=== PATIENT | male | born 1950 | race Caucasian/White ===

== ENCOUNTER 2017-08-03 17:30 | Inpatient (IN) | payer MEDICARE, OTHER ==
[~2017-08-03] VITALS: Ht 172.7 cm; Wt 78.2 kg
--- NOTE | 2017-08-03 18:31 | PHYS DOC ---
Adult General Chief Complaint Chief Complaint: ALTERED MENTAL STATUS HPI HPI Patient is a 66 year old male who presents with his and daughter to the emergency department for evaluation of behavioral problems. The patient states that he has history of OCD and was recently diagnosed with dementia. Patient has been following with Dr. Escamilla of neurology over the past several months. Patient and patient's family state that over the past 6 months the patient has had continuing moderate to severe symptoms of OCD and difficulty with memory loss. The patient has not had any significant changes in his health otherwise over the past 2 weeks. After speaking with the patient's neurologist, the family states that they were instructed to come to the hospital for evaluation. They were told by Dr. Diaz that he expected they would need to likely admit the patient to the [facility] unit for further care. The patient otherwise denies any symptoms of chest pain, shortness of breath, nausea, vomiting, or fever. Review of Systems Review of Systems Constitutional: Denies fever or chills [] Eyes: Denies change in visual acuity, redness, or eye pain [] HENT: Denies nasal congestion or sore throat [] Respiratory: Denies cough or shortness of breath [] Cardiovascular: Denies chest pain or edema[] GI: Denies abdominal pain, nausea, vomiting, bloody stools or diarrhea [] : Denies dysuria or hematuria [] Musculoskeletal: Denies back pain or joint pain [] Integument: Denies rash or skin lesions [] Neurologic: Denies headache, focal weakness or sensory changes [] Endocrine: Denies polyuria or polydipsia [] All other systems were reviewed and found to be within normal limits, except as documented in this note. Allergies Allergies Allergies Coded Allergies Type Severity Reaction Last Updated Verified No Known Drug Allergies 08/03/17 No Physical Exam Physical Exam Constitutional: Well developed, well nourished, no acute distress, non-toxic appearance. [] HENT: Normocephalic, atraumatic, bilateral external ears normal, oropharynx moist, no oral exudates, nose normal. [] Eyes: PERRLA, EOMI, conjunctiva normal, no discharge. [] Neck: Normal range of motion, no tenderness, supple, no stridor. [] Cardiovascular:Heart rate regular rhythm, no murmur [] Lungs & Thorax: Bilateral breath sounds clear to auscultation [] Abdomen: Bowel sounds normal, soft, no tenderness, no masses, no pulsatile masses. [] Skin: Warm, dry, no erythema, no rash. [] Back: No tenderness, no CVA tenderness. [] Extremities: No tenderness, no cyanosis, no clubbing, ROM intact, no edema. [] Neurologic: Alert and oriented X 3, normal motor function, normal sensory function, no focal deficits noted. [] Current Patient Data Vital Signs Vital Signs Date Time Temp Pulse Resp B/P (MAP) Pulse Ox O2 Delivery O2 Flow Rate FiO2 08/03/17 17:30 98.5 101 18 95 Room Air Lab Results Laboratory Tests Test 08/03/17 18:15 08/03/17 18:50 White Blood Count 8.8 x10^3/uL Red Blood Count 5.02 x10^6/uL Hemoglobin 15.4 g/dL Hematocrit 46.0 % Mean Corpuscular Volume 92 fL Mean Corpuscular Hemoglobin 31 pg Mean Corpuscular Hemoglobin Concent 33 g/dL Red Cell Distribution Width 14.5 % Platelet Count 249 x10^3/uL Neutrophils (%) (Auto) 68 % Lymphocytes (%) (Auto) 21 % Monocytes (%) (Auto) 10 % Eosinophils (%) (Auto) 1 % Basophils (%) (Auto) 1 % Neutrophils # (Auto) 5.9 x10^3uL Lymphocytes # (Auto) 1.8 x10^3/uL Monocytes # (Auto) 0.8 x10^3/uL Eosinophils # (Auto) 0.1 x10^3/uL Basophils # (Auto) 0.0 x10^3/uL Sodium Level 146 mmol/L Potassium Level 4.0 mmol/L Chloride Level 108 mmol/L Carbon Dioxide Level 31 mmol/L Anion Gap 7 Blood Urea Nitrogen 27 mg/dL Creatinine 0.8 mg/dL Estimated GFR (Cockcroft-Gault) 96.1 BUN/Creatinine Ratio 34 Glucose Level 86 mg/dL Calcium Level 8.9 mg/dL Magnesium Level 1.9 mg/dL Total Bilirubin 0.3 mg/dL Aspartate Amino Transf (AST/SGOT) 19 U/L Alanine Aminotransferase (ALT/SGPT) 35 U/L Alkaline Phosphatase 88 U/L Total Protein 6.6 g/dL Albumin 3.8 g/dL Albumin/Globulin Ratio 1.4 Urine Collection Type Unknown Urine Color Yellow Urine Clarity Clear Urine pH 5.5 Urine Specific [place] 1.025 Urine Protein Neg Urine Glucose (UA) Neg mg/dL Urine Ketones (Stick) Trace mg/dL Urine Blood Neg Urine Nitrite Neg Urine Bilirubin Neg Urine Urobilinogen Dipstick 0.2 mg/dL Urine Leukocyte Esterase Neg Urine RBC 3-5 /HPF Urine WBC 1-4 /HPF Urine Squamous Epithelial Cells Few /LPF Urine Bacteria 0 /HPF Urine Mucus Mod /LPF Urine Opiates Screen Neg Urine Methadone Screen Neg Urine Barbiturates Neg Urine Phencyclidine Screen Neg Urine Amphetamine/Methamphetamine Neg Urine Benzodiazepines Screen Neg Urine Cocaine Screen Neg Urine Cannabinoids Screen Neg Urine Ethyl Alcohol Neg EKG EKG Interpreted by me: Heart rate 87, sinus rhythm, normal intervals, leftward axis , no acute ST/T-wave abnormalities present[] Radiology/Procedures Radiology/Procedures One view AP chest x-ray interpreted by me: No infiltrate, no effusions, normal cardiac silhouette[] Course & Med Decision Making Course & Med Decision Making Pertinent Labs and Imaging studies reviewed. (See chart for details) Patient appears well on exam. Patient medically cleared in the emergency department. I feel patient is a good candidate for admission to the [facility]. The patient was accepted for admission by Dr. Cid. Ma[place]on Disclaimer Dragon Disclaimer This electronic medical record was generated, in whole or in part, using a voice recognition dictation system. Departure Departure: Impression: Primary Impression: Obsessive compulsive disorder Additional Impressions: Dementia Medical clearance for psychiatric admission Disposition: ADMITTED INPATIENT Admitting Physician: Other Condition: STABLE Referrals: RENITA VINES MD (PCP) Problem Qualifiers Primary Impression: Obsessive compulsive disorder Obsessive-compulsive disorder type: unspecified Qualified Codes: F42.9 - Obsessive-compulsive disorder, unspecified Additional Impressions: Dementia Dementia type: unspecified type Dementia behavioral disturbance: with behavioral disturbance Qualified Codes: F03.91 - Unspecified dementia with behavioral disturbance EMILIANO ESCOBAR MD Aug 03, 2017 18:31
[2017-08-03 18:52] LABS: BASO % 1 % (0-3); EOS # 0.1 x10^3/uL (0.0-0.7); EOS % 1 % (0-3); HEMOGLOBIN 15.4 g/dL (13.0-17.5); LYMPH # 1.8 x10^3/uL (1.0-4.8); LYMPH % 21 % (24-48); MEAN CORPUSCULAR HEMOGLOBIN 31 pg (25-35); MEAN CORPUSCULAR HGB CONC 33 g/dL (31-37); MEAN CORPUSCULAR VOLUME 92 fL (79-100); MONO # 0.8 x10^3/uL (0.0-1.1); MONO % 10 % (0-9); NEUT # 5.9 x10^3uL (1.8-7.7); NEUT % 68 % (31-73); PLATELET COUNT 249 x10^3/uL (140-400); RED BLOOD COUNT 5.02 x10^6/uL (4.30-5.70); RED CELL DISTRIBUTION WIDTH 14.5 % (11.5-14.5); WHITE BLOOD COUNT 8.8 x10^3/uL (4.0-11.0)
[2017-08-03 19:09] LABS: ALBUMIN 3.8 g/dL (3.4-5.0); ALBUMIN/GLOBULIN RATIO 1.4 (1.0-1.7); CALCIUM 8.9 mg/dL (8.5-10.1); CREATININE 0.8 mg/dL (0.7-1.3); GFR 96.1; MAGNESIUM 1.9 mg/dL (1.8-2.4); TOTAL BILIRUBIN 0.3 mg/dL (0.2-1.0); TOTAL PROTEIN 6.6 g/dL (6.4-8.2)
[2017-08-03 19:13] LABS: AMPHETAMINE/METHAMPHETAMINE NEG (NEG); BARBITURATES NEG (NEG); BENZODIAZEPINES NEG (NEG); CANNABINOIDS NEG (NEG); COCAINE NEG (NEG); METHADONE NEG (NEG); OPIATES NEG (NEG); PHENCYCLIDINE NEG (NEG)
[2017-08-03 19:38] LABS: CLARITY,URINE CLEAR; COLOR,URINE YELLOW
[2017-08-03 19:39] LABS: BACTERIA,URINE 0 /HPF (0-FEW); BILIRUBIN,URINE NEG (NEG); GLUCOSE,URINE NEG (NEG); NITRITE,URINE NEG (NEG); SQUAMOUS EPITHELIAL CELL,UR FEW /LPF; UROBILINOGEN,URINE 0.2 mg/dL (0.2 mg/dL)
--- NOTE | 2017-08-03 19:49 | EKG ---
[address] [address] Test Date: 2017-08-03 Test Time: 18:54:09 Pat Name: BABS CANDELARIO Department: Room: Gender: M Home Care Physical Therapist: JUNG : 1950 Requested By: EMILIANO ESCOBAR Order Number: [id number] Reading MD: Alverto De Souza MD Measurements Intervals [place] Rate: 87 P: 42 SC: 158 QRS: -13 QRSD: 72 T: 39 QT: 348 QTc: 419 Interpretive Statements SINUS RHYTHM Electronically Signed On 08-04-2017 10:29:20 [employer] by Alverto De Souza MD
[2017-08-03 22:23] VITALS: BP 165/86
[2017-08-03] MEDS ORDERED: METHYL SALICYLATE/MENTHOL TOPICAL OINTMENT 29GM TUBE. TP PRN (23:00)
[2017-08-03] MEDS ORDERED: MAG HYDROX/AL HYDROX/SIMETH 30 ML ORAL.SUSP PO PRN (23:00)
[2017-08-03] MEDS ORDERED: MAGNESIUM HYDROXIDE 2,400 MG/30 ML ORAL.SUSP. PO PRN (23:00)
[2017-08-03] MEDS ORDERED: ACETAMINOPHEN 325 MG TABLET PO PRN (23:00)
[2017-08-03] MEDS ORDERED: ESOM40CA PO (23:24)
[2017-08-03] MEDS ORDERED: excedrin pm (23:24)
[2017-08-03] MEDS ORDERED: SAW500CA PO (23:24)
[2017-08-03] MEDS ORDERED: MELO15TA23 PO (23:24)
[2017-08-03] MEDS ORDERED: UBID1CAP PO (23:24)
[2017-08-03] MEDS ORDERED: OLAN2.5T3 PO (23:24)
[2017-08-03] MEDS ORDERED: ATOR20TA58 PO (23:24)
[2017-08-03] MEDS ORDERED: OXYB5TAB7 PO (23:24)
[2017-08-03] MEDS ORDERED: ASPI-621 PO (23:24)
[2017-08-03] MEDS ORDERED: VENL75TA PO (23:24)
[2017-08-03] MEDS ORDERED: MELA3TAB2 PO (23:24)
[2017-08-04] MEDS ORDERED: MEMA1CAP4 PO (04:54)
[2017-08-04] MEDS ORDERED: POTA99TA10 PO (04:54)
[2017-08-04 05:59] VITALS: BP 120/69
[2017-08-04] MEDS: PANTOPRAZOLE 40 MG TABLET. PO SCH (07:44)
[2017-08-04] MEDS: OXYBUTYNIN CHLORIDE 5 MG TABLET PO SCH ×2 (07:44→20:48)
[2017-08-04] MEDS: MEMANTINE 5 MG TABLET. PO SCH (07:44)
[2017-08-04] MEDS: DONEPEZIL HCL 10 MG TABLET PO SCH (07:44)
--- NOTE | 2017-08-04 08:32 | RAD ---
Chest, 2 views, 08/03/2017: History: Possible cardiopulmonary disease The heart size and pulmonary vascularity are normal. No pulmonary infiltrate is seen. There is no evidence of pleural fluid. Mild spurring is present in the spine. IMPRESSION: No acute cardiopulmonary abnormality is detected.
[2017-08-04] MEDS ORDERED: SAW PALMETTO 500 MG PO SCH (09:00)
[2017-08-04] MEDS ORDERED: MELOXICAM 15 MG TABLET. PO SCH (09:00)
[2017-08-04] MEDS ORDERED: POTASSIUM 99 MG PO SCH (09:00)
[2017-08-04 16:02] VITALS: BP 148/90
[2017-08-04 19:08] LABS: HEMOGLOBIN A1C 5.5 % (4.8-5.6); T3 TOTAL 109 ng/dL (71-180); THYROXINE 6.4 ug/dL (4.5-12.0)
--- NOTE | 2017-08-04 20:22 | PDOC ---
Exam Note: Mir Note: Please also refer to the separate dictated note~for this date of service dictated separately.~Patient seen individually. Discussed the patient with Nursing staff reviewed the chart.~Reviewed interim history and current functioning. Reviewed vital signs,~Labs/ Radiology~and current medications noted below. Continue current treatment with the changes noted in the dictated addendum note Assessment: Vital Signs: Vital Signs Date Time Temp Pulse Resp B/P (MAP) Pulse Ox O2 Delivery O2 Flow Rate FiO2 08/04/17 16:02 96.8 75 16 148/90 (109) 93 Room Air Current Medications: Meds: Current Medications Acetaminophen (Tylenol) 650 mg PRN Q6HRS PRN PO PAIN / TEMP; Start 08/03/17 at 23:00 Multi-Ingredient Ointment (Analgesic [place]) 1 tamara PRN QID PRN TP MUSCLE PAIN; Start 08/03/17 at 23:00 Al Hydroxide/Mg Hydroxide (Mylanta Plus Xs) 15 ml PRN AFTMEALHC PRN PO DYSPEPSIA; Start 08/03/17 at 23:00 Magnesium Hydroxide (Milk Of Magnesia) 2,400 mg PRN QHS PRN PO CONSTIPATION; Start 08/03/17 at 23:00 Meloxicam (Mobic) 15 mg DAILY PO Last administered on 08/04/17at 07:44; Start at 09:00; Stop 08/04/17 at 18:53; Status DC Venlafaxine HCl (Effexor) 150 mg HS PO ; Start 08/04/17 at 21:00 Melatonin 6 mg QHS PO ; Start 08/04/17 at 21:00 Olanzapine (ZyPREXA ZYDIS) 2.5 mg PRN Q2HR PRN PO ANXIETY / AGITATION; Start at 23:30 Donepezil HCl (Aricept) 10 mg DAILY PO Last administered on 08/04/17at 07:44; Start 08/04/17 at 09:00 Acetaminophen/ Aspirin/Caffeine (Excedrin Migraine) 2 tab HS PO ; Start at 21:00; Status Cancel Atorvastatin Calcium (Lipitor) 20 mg QHS PO ; Start 08/04/17 at 21:00 Oxybutynin Chloride (Ditropan) 5 mg BID PO Last administered on 08/04/17at 07:44 ; Start 08/04/17 at 09:00 Pantoprazole Sodium (Protonix) 40 mg DAILYAC PO Last administered on 08/04/17at 07:44; Start 08/04/17 at 07:30 Non-Formulary Medication 99 mg DAILY PO ; Start 08/04/17 at 09:00; Status UNV Non-Formulary Medication 500 mg BID PO ; Start 08/04/17 at 09:00; Status UNV Non-Formulary Medication 1 each HS PO ; Start 08/04/17 at 21:00; Status UNV Non-Formulary Medication 2 tab HS .ROUTE ; Start 08/04/17 at 21:00; Status UNV Memantine (Namenda) 5 mg DAILY PO Last administered on 08/04/17at 07:44; Start 08/04/17 at 09:00 Vitamin D (Vitamin D3) 50,000 unit WEEKLY PO ; Start 08/04/17 at 19:30 Active Scripts Active Reported Potassium 99 Mg Tablet 99 Mg PO DAILY Namzaric 7 mg-10 mg Capsule (Memantine HCl/Donepezil HCl) 1 Each Cap.spr.24 1 Each PO DAILY Melatonin 3 Mg Tablet 5 Mg PO HS Saw [place] 500 Mg Capsule 500 Mg PO BID [excedrin pm] 2 Tab HS Excedrin Extra Strength Caplet (Aspirin/Acetaminophen/Caffeine) 1 Each Tablet 2 Each PO Atorvastatin Calcium 20 Mg Tablet 20 Mg PO QHS Venlafaxine Hcl 75 Mg Tablet 150 Mg PO HS Co-Enzyme Q10 100 mg Softgel (Ubidecarenone/Vit E/Vit E Mix) 1 Each Capsule 1 Each PO HS Oxybutynin Chloride 5 Mg Tablet 5 Mg PO BID Meloxicam 15 Mg Tablet 15 Mg PO DAILY Nexium Capsule (Esomeprazole Magnesium) 40 Mg Capsule. 40 Mg PO DAILYAC I have reviewed the current psychotropics carefully including drug interactions. Risk benefit ratio favors no change other than as noted in my dictated progress note. Diagnosis: Problems: (1) Dementia (2) Obsessive compulsive disorder (3) Medical clearance for psychiatric admission MARCIAL HINTON MD Aug 04, 2017 20:22
[2017-08-04] MEDS: CHOLECALCIFEROL (VITAMIN D3) 50,000 UNIT CAPSULE PO SCH (20:47)
[2017-08-04] MEDS: MELATONIN 3 MG TABLET PO SCH (20:48)
[2017-08-04] MEDS: ATORVASTATIN CALCIUM 20 MG TABLET PO SCH (20:48)
[2017-08-04] MEDS ORDERED: VIT E PO SCH (21:00)
[2017-08-04] MEDS ORDERED: EXCEDRIN PM SCH (21:00)
[2017-08-04] MEDS ORDERED: UBIDECARENONE PO SCH (21:00)
[2017-08-04] MEDS ORDERED: [UNRECOGNIZED DRUG - OTHER] PO SCH (21:00)
[2017-08-04] MEDS ORDERED: ASA/APAP/CAFFEINE 250/250/65MG TABLET. PO SCH (21:00)
[2017-08-04] MEDS ORDERED: VIT E MIX PO SCH (21:00)
[2017-08-04] MEDS ORDERED: VENLAFAXINE 75 MG TABLET. PO SCH (21:00)
[2017-08-05 05:52] VITALS: BP 131/77
[2017-08-05] MEDS: OXYBUTYNIN CHLORIDE 5 MG TABLET PO SCH ×2 (08:21→19:46)
[2017-08-05] MEDS: MEMANTINE 5 MG TABLET. PO SCH (08:22)
[2017-08-05] MEDS: PANTOPRAZOLE 40 MG TABLET. PO SCH (08:22)
[2017-08-05] MEDS: DONEPEZIL HCL 10 MG TABLET PO SCH (08:22)
--- NOTE | 2017-08-05 12:58 | HP ---
ADMIT DATE: 08/04/2017 PSYCHIATRIC ADMISSION HISTORY/EVALUATION This is a late entry for date of service 08/04/2017, covers elements not covered in my initial note of 08/04/2017. IDENTIFYING DATA: The patient was seen individually evening of 08/04/2017 for this evaluation, previously discussed with nursing staff on a couple of occasions and reviewed information from Dr. Diaz neurologist who saw the patient earlier in the day on account of his progressively worsening confusion, anger, obsessions, trying to get away from home, wandering to neighbors, asking for rides, undressing. He was sent to the Emergency Room per Dr. Diaz for possible inpatient psychiatric stabilization. CHIEF COMPLAINT: "I am losing my memory." The patient is quite irritable, defensive, but did admit to the above. HISTORY OF PRESENT ILLNESS: The patient has a history of short term memory deficits, increasing confusion and disorientation. He has been quite anxious, obsessive, having sleep and appetite changes, somewhat delusional. No active suicidal or homicidal ideation. As noted, he has been angry at home, wandering, quite obsessive, undressing. He has failed outpatient psychiatric interventions with Dr. Diaz and primary care physician Dr. Tyrell Hamilton. No clear history of bipolar disorder. PAST PSYCHIATRIC HISTORY: Positive for progressive memory deficits, delusion, depression, anger, irritability. PAST MEDICAL HISTORY: Urinary hesitancy. DRUG ALLERGIES: Negative. CODE STATUS: Full code. DIET: Regular, no caffeine, takes his medications whole, ambulates ad jameson. FAMILY HISTORY: Noncontributory. SOCIAL HISTORY: The patient lives at home with his family. No alcohol or drug abuse, physical, sexual or elder abuse history is noted. Not known to be a perpetrator. Reaction to hospitalization, the patient accepting. The patient is a . ASSETS: Supportive family. MENTAL STATUS EXAM: The patient was seen individually evening of 08/04/2017. He is oriented to himself, quite paranoid, suspicious, anxious, appears depressed. He felt the year was 2017, later corrected it to 2018, not willing to answer questions on serial 7's. Mood appears depressed. No active suicidal or homicidal ideation. Attention span short. Language function intact. LABORATORY DATA: Reviewed. This note covers elements not covered in my initial note of 08/04/2017. IMPRESSION: Major neurocognitive disorder, Alzheimer, vascular with depression, delusion, behavioral disturbance; anxiety disorder, unspecified; impulse control disorder, unspecified. Rest as above. PLAN: Admit to Geropsychiatry unit at [facility]. I will see the patient daily individually from a psychiatric standpoint. Medical followup per Dr. Lieberman/Dr. Mai. Continue the patient on his current psychotropics, which include Effexor 150 mg at bedtime, melatonin 5 mg at bedtime, Namzaric 7/10 mg daily, Zyprexa was added p.r.n. for psychosis, agitation. We will make further changes post baseline assessment. MARCIAL HINTON MD DR: PRO/alvin JOB#: [id number] / [id number]
--- NOTE | 2017-08-05 15:11 | CONS ---
DATE OF CONSULTATION: 08/04/2017 REASON FOR CONSULTATION: Medical management. HISTORY OF PRESENT ILLNESS: The patient is a 66-year-old male patient who was brought by his to the Emergency Room for evaluation of behavioral problems. The patient states that he has history of OCD and was recently diagnosed with dementia, has been following with Dr. Diaz, Neurology, over the past several months and the patient's family stated that over the past 6 months, the patient has had continuing moderate to severe symptoms of OCD difficulty with memory loss. He has not had any significant changes in his health, otherwise over the last 2 weeks. The neurologist instructed him to come to the hospital for evaluation and the patient was evaluated in the Emergency Room and was eventually [facility] for inpatient psychiatric stabilization. PAST MEDICAL HISTORY: Significant for hyperlipidemia. He also has benign prostatic hypertrophy and vitamin D deficiency. PAST SURGICAL HISTORY: Unremarkable. ALLERGIES: He has no known drug allergies. MEDICATIONS: He is currently on following medications: He is on Excedrin 2 tablets daily, atorvastatin calcium 20 mg at bedtime, Nexium 40 mg daily, melatonin 5 mg at bedtime, meloxicam 15 mg daily and Namenda or Namzaric 7 mg/10 mg capsules 1 daily, oxybutynin chloride 5 mg twice a day, potassium 99 mg tablet once a day, saw [place] 500 mg p.o. b.i.d., Coenzyme Q10 100 mg tablet once a day, venlafaxine 150 mg daily, and Excedrin PM 2 tablets at bedtime as a sleep aid. REVIEW OF SYSTEMS: Unobtainable. PHYSICAL EXAMINATION: GENERAL: When I examined him, he looked well and was clearly in no apparent respiratory distress, pale, but no jaundice, cyanosis, or thyromegaly. No jugular venous distention. No limb edema. VITAL SIGNS: His heart rate was 75, blood pressure 148/90, temperature was 96.8, respiratory rate was 16, and oxygen saturation was 93%. HEAD, EYES, EARS, NOSE AND THROAT: Showed normocephalic, atraumatic. NECK: Supple. HEART: Showed normal first and second heart sounds with no gallop, rub, or murmur. CHEST: Clear to auscultation. No crepitation or rhonchi. ABDOMEN: Distended, soft, nontender. NEUROLOGIC: He is awake, alert, but very confused. All his cranial nerves are intact. EXTREMITIES: He moves extremities without difficulty. He ambulates without assistance or assistive devices. LABORATORY DATA: His white cell count was 8800, hemoglobin 15, hematocrit 46, MCV 92, and platelet count 249,000. His chemistry showed that his serum sodium is 146, potassium 4, chloride 108, bicarbonate 31, anion gap of 7, BUN 27, creatinine 0.8, estimated GFR was 96 mL per minute. His glucose was 86, calcium was 8.9, magnesium was 1.9. Total bilirubin, AST, ALT, alkaline phosphatase were normal. His total protein was 6.6, albumin 3.8. His vitamin B12 was 708. TSH was normal at 1.29. Vitamin D deficiency with 25-hydroxyvitamin D of only 8.7. Serum iron was 72, TIBC was 314 and iron saturation was 23. His triglycerides were 210, total cholesterol was 76, LDL was 81, HDL was 53 and the ratio was 3. So urinalysis was unremarkable and urine toxic screen was negative. His chest x-ray showed that there is no acute cardiopulmonary abnormalities detected. IMPRESSION: In summary, this is a 66-year-old male patient who was admitted with worsening dementia and severe OCD. He was [facility] for inpatient psychiatric stabilization. Medically, he has hyperlipidemia, benign prostatic hypertrophy, vitamin D deficiency. I did start him cholecalciferol 50,000 units once a week and he apparently has had multiple episodes of nausea, vomiting. So I recommended to discontinue his meloxicam and perhaps consider discontinuation of his Excedrin if symptoms continues. Thank you, Dr. Cid, for allowing me to participate in the care of this patient. JEANNE PAEZ MD DR: KATHIE/alvin JOB#: [id number] / [id number]
[2017-08-05 16:25] VITALS: BP 145/85
[2017-08-05] MEDS: ATORVASTATIN CALCIUM 20 MG TABLET PO SCH (19:46)
[2017-08-05] MEDS: MELATONIN 3 MG TABLET PO SCH (19:46)
[2017-08-05] MEDS: MIRTAZAPINE 7.5 MG TABLET. PO SCH (19:49)
[2017-08-05] MEDS: diphenhydrAMINE HCL 25 MG CAPSULE PO SCH (19:49)
[2017-08-05] MEDS: ACETAMINOPHEN 500 MG TABLET PO SCH (19:49)
[2017-08-05] MEDS: traZODone 50 MG TABLET. PO PRN (19:49)
--- NOTE | 2017-08-05 20:18 | PDOC ---
Exam Note: Mir Note: Please also refer to the separate dictated note~for this date of service dictated separately.~Patient seen individually. Discussed the patient with Nursing staff reviewed the chart.~Reviewed interim history and current functioning. Reviewed vital signs,~Labs/ Radiology~and current medications noted below. Continue current treatment with the changes noted in the dictated addendum note Assessment: Vital Signs: Vital Signs Date Time Temp Pulse Resp B/P (MAP) Pulse Ox O2 Delivery O2 Flow Rate FiO2 08/05/17 16:25 97.9 89 20 145/85 (105) 94 Room Air I&O Intake and Output 08/05/17 07:00 Intake Total 1080 ml Balance 1080 ml Intake Oral 1080 ml Current Medications: Meds: Current Medications Acetaminophen (Tylenol) 650 mg PRN Q6HRS PRN PO PAIN / TEMP; Start 08/03/17 at 23:00 Multi-Ingredient Ointment (Analgesic [place]) 1 tamara PRN QID PRN TP MUSCLE PAIN; Start 08/03/17 at 23:00 Al Hydroxide/Mg Hydroxide (Mylanta Plus Xs) 15 ml PRN AFTMEALHC PRN PO DYSPEPSIA; Start 08/03/17 at 23:00 Magnesium Hydroxide (Milk Of Magnesia) 2,400 mg PRN QHS PRN PO CONSTIPATION; Start 08/03/17 at 23:00 Meloxicam (Mobic) 15 mg DAILY PO Last administered on 08/04/17at 07:44; Start at 09:00; Stop 08/04/17 at 18:53; Status DC Venlafaxine HCl (Effexor) 150 mg HS PO Last administered on 08/04/17at 20:48; Start 08/04/17 at 21:00; Stop 08/05/17 at 19:31; Status DC Melatonin 6 mg QHS PO Last administered on 08/05/17at 19:46; Start 08/04/17 at 21:00 Olanzapine (ZyPREXA ZYDIS) 2.5 mg PRN Q2HR PRN PO ANXIETY / AGITATION; Start at 23:30 Donepezil HCl (Aricept) 10 mg DAILY PO Last administered on 08/05/17at 08:22; Start 08/04/17 at 09:00 Acetaminophen/ Aspirin/Caffeine (Excedrin Migraine) 2 tab HS PO ; Start at 21:00; Status Cancel Atorvastatin Calcium (Lipitor) 20 mg QHS PO Last administered on 08/05/17at 19: 46; Start 08/04/17 at 21:00 Oxybutynin Chloride (Ditropan) 5 mg BID PO Last administered on 08/05/17at 19:46 ; Start 08/04/17 at 09:00 Pantoprazole Sodium (Protonix) 40 mg DAILYAC PO Last administered on 08/05/17at 08:22; Start 08/04/17 at 07:30 Non-Formulary Medication 99 mg DAILY PO ; Start 08/04/17 at 09:00; Status UNV Non-Formulary Medication 500 mg BID PO ; Start 08/04/17 at 09:00; Status UNV Non-Formulary Medication 1 each HS PO ; Start 08/04/17 at 21:00; Status UNV Non-Formulary Medication 2 tab HS .ROUTE ; Start 08/04/17 at 21:00; Stop at 07:23; Status DC Memantine (Namenda) 5 mg DAILY PO Last administered on 08/05/17at 08:22; Start 08/04/17 at 09:00 Vitamin D (Vitamin D3) 50,000 unit WEEKLY PO Last administered on 08/04/17at 20: 47; Start 08/04/17 at 19:30 Acetaminophen (Tylenol) 1,000 mg QHS PO Last administered on 08/05/17at 19:49; Start 08/05/17 at 21:00 Diphenhydramine HCl (Benadryl) 50 mg QHS PO Last administered on 08/05/17at 19: 49; Start 08/05/17 at 21:00 Fluvoxamine Maleate (Luvox) 50 mg QHS PO Last administered on 08/05/17at 19:49; Start 08/05/17 at 21:00 Mirtazapine (Remeron) 7.5 mg QHS PO Last administered on 08/05/17at 19:49; Start 08/05/17 at 21:00 Trazodone HCl (Desyrel) 50 mg PRN QHS PRN PO INSOMNIA, MAY REPEAT X1 Last administered on 08/05/17at 19:49; Start 08/05/17 at 19:30 Active Scripts Active Reported Potassium 99 Mg Tablet 99 Mg PO DAILY Namzaric 7 mg-10 mg Capsule (Memantine HCl/Donepezil HCl) 1 Each Cap.spr.24 1 Each PO DAILY Melatonin 3 Mg Tablet 5 Mg PO HS Saw [place] 500 Mg Capsule 500 Mg PO BID [excedrin pm] 2 Tab HS Excedrin Extra Strength Caplet (Aspirin/Acetaminophen/Caffeine) 1 Each Tablet 2 Each PO Atorvastatin Calcium 20 Mg Tablet 20 Mg PO QHS Venlafaxine Hcl 75 Mg Tablet 150 Mg PO HS Co-Enzyme Q10 100 mg Softgel (Ubidecarenone/Vit E/Vit E Mix) 1 Each Capsule 1 Each PO HS Oxybutynin Chloride 5 Mg Tablet 5 Mg PO BID Meloxicam 15 Mg Tablet 15 Mg PO DAILY Nexium Capsule (Esomeprazole Magnesium) 40 Mg Capsule. 40 Mg PO DAILYAC I have reviewed the current psychotropics carefully including drug interactions. Risk benefit ratio favors no change other than as noted in my dictated progress note. Diagnosis: Problems: (1) Dementia (2) Obsessive compulsive disorder (3) Anxiety disorder (4) Dementia in Alzheimer's disease with delusions (5) Dementia in Alzheimer's disease with depression (6) Dementia, vascular, with delusions (7) Dementia, vascular, with depression (8) Impulse control disorder MARCIAL HINTON MD Aug 05, 2017 20:18
[2017-08-06 06:22] VITALS: BP 126/71
[2017-08-06] MEDS: OXYBUTYNIN CHLORIDE 5 MG TABLET PO SCH ×2 (08:15→19:19)
[2017-08-06] MEDS: MEMANTINE 5 MG TABLET. PO SCH (08:15)
[2017-08-06] MEDS: PANTOPRAZOLE 40 MG TABLET. PO SCH (08:15)
[2017-08-06] MEDS: DONEPEZIL HCL 10 MG TABLET PO SCH (08:15)
[2017-08-06 16:21] VITALS: BP 120/72
[2017-08-06] MEDS: ATORVASTATIN CALCIUM 20 MG TABLET PO SCH (19:19)
[2017-08-06] MEDS: MIRTAZAPINE 7.5 MG TABLET. PO SCH (19:19)
[2017-08-06] MEDS: diphenhydrAMINE HCL 25 MG CAPSULE PO SCH (19:19)
[2017-08-06] MEDS: ACETAMINOPHEN 500 MG TABLET PO SCH (19:19)
[2017-08-06] MEDS: MELATONIN 3 MG TABLET PO SCH (19:20)
[2017-08-06] MEDS: traZODone 50 MG TABLET. PO PRN (19:21)
--- NOTE | 2017-08-06 20:39 | PDOC ---
Exam Note: Mir Note: Please also refer to the separate dictated note~for this date of service dictated separately.~Patient seen individually. Discussed the patient with Nursing staff reviewed the chart.~Reviewed interim history and current functioning. Reviewed vital signs,~Labs/ Radiology~and current medications noted below. Continue current treatment with the changes noted in the dictated addendum note Assessment: Vital Signs: Vital Signs Date Time Temp Pulse Resp B/P (MAP) Pulse Ox O2 Delivery O2 Flow Rate FiO2 08/06/17 16:21 98.4 97 18 120/72 (88) 94 08/05/17 16:25 Room Air I&O Intake and Output 08/06/17 07:00 Intake Total 1080 ml Balance 1080 ml Intake Oral 1080 ml # Bowel Movements 1 Current Medications: Meds: Current Medications Acetaminophen (Tylenol) 650 mg PRN Q6HRS PRN PO PAIN / TEMP; Start 08/03/17 at 23:00 Multi-Ingredient Ointment (Analgesic [place]) 1 tamara PRN QID PRN TP MUSCLE PAIN; Start 08/03/17 at 23:00 Al Hydroxide/Mg Hydroxide (Mylanta Plus Xs) 15 ml PRN AFTMEALHC PRN PO DYSPEPSIA; Start 08/03/17 at 23:00 Magnesium Hydroxide (Milk Of Magnesia) 2,400 mg PRN QHS PRN PO CONSTIPATION; Start 08/03/17 at 23:00 Meloxicam (Mobic) 15 mg DAILY PO Last administered on 08/04/17at 07:44; Start at 09:00; Stop 08/04/17 at 18:53; Status DC Venlafaxine HCl (Effexor) 150 mg HS PO Last administered on 08/04/17at 20:48; Start 08/04/17 at 21:00; Stop 08/05/17 at 19:31; Status DC Melatonin 6 mg QHS PO Last administered on 08/06/17at 19:20; Start 08/04/17 at 21:00 Olanzapine (ZyPREXA ZYDIS) 2.5 mg PRN Q2HR PRN PO ANXIETY / AGITATION; Start at 23:30 Donepezil HCl (Aricept) 10 mg DAILY PO Last administered on 08/06/17at 08:15; Start 08/04/17 at 09:00 Acetaminophen/ Aspirin/Caffeine (Excedrin Migraine) 2 tab HS PO ; Start at 21:00; Status Cancel Atorvastatin Calcium (Lipitor) 20 mg QHS PO Last administered on 08/06/17at 19: 19; Start 08/04/17 at 21:00 Oxybutynin Chloride (Ditropan) 5 mg BID PO Last administered on 08/06/17at 19:19 ; Start 08/04/17 at 09:00 Pantoprazole Sodium (Protonix) 40 mg DAILYAC PO Last administered on 08/06/17at 08:15; Start 08/04/17 at 07:30 Non-Formulary Medication 99 mg DAILY PO ; Start 08/04/17 at 09:00; Status UNV Non-Formulary Medication 500 mg BID PO ; Start 08/04/17 at 09:00; Status UNV Non-Formulary Medication 1 each HS PO ; Start 08/04/17 at 21:00; Status UNV Non-Formulary Medication 2 tab HS .ROUTE ; Start 08/04/17 at 21:00; Stop at 07:23; Status DC Memantine (Namenda) 5 mg DAILY PO Last administered on 08/06/17at 08:15; Start 08/04/17 at 09:00 Vitamin D (Vitamin D3) 50,000 unit WEEKLY PO Last administered on 08/04/17at 20: 47; Start 08/04/17 at 19:30 Acetaminophen (Tylenol) 1,000 mg QHS PO Last administered on 08/06/17at 19:19; Start 08/05/17 at 21:00 Diphenhydramine HCl (Benadryl) 50 mg QHS PO Last administered on 08/06/17at 19: 19; Start 08/05/17 at 21:00 Fluvoxamine Maleate (Luvox) 50 mg QHS PO Last administered on 08/06/17at 19:20; Start 08/05/17 at 21:00 Mirtazapine (Remeron) 7.5 mg QHS PO Last administered on 08/06/17at 19:19; Start 08/05/17 at 21:00 Trazodone HCl (Desyrel) 50 mg PRN QHS PRN PO INSOMNIA, MAY REPEAT X1 Last administered on 08/06/17at 19:21; Start 08/05/17 at 19:30 Active Scripts Active Reported Potassium 99 Mg Tablet 99 Mg PO DAILY Namzaric 7 mg-10 mg Capsule (Memantine HCl/Donepezil HCl) 1 Each Cap.spr.24 1 Each PO DAILY Melatonin 3 Mg Tablet 5 Mg PO HS Saw [place] 500 Mg Capsule 500 Mg PO BID [excedrin pm] 2 Tab HS Excedrin Extra Strength Caplet (Aspirin/Acetaminophen/Caffeine) 1 Each Tablet 2 Each PO Atorvastatin Calcium 20 Mg Tablet 20 Mg PO QHS Venlafaxine Hcl 75 Mg Tablet 150 Mg PO HS Co-Enzyme Q10 100 mg Softgel (Ubidecarenone/Vit E/Vit E Mix) 1 Each Capsule 1 Each PO HS Oxybutynin Chloride 5 Mg Tablet 5 Mg PO BID Meloxicam 15 Mg Tablet 15 Mg PO DAILY Nexium Capsule (Esomeprazole Magnesium) 40 Mg Capsule. 40 Mg PO DAILYAC I have reviewed the current psychotropics carefully including drug interactions. Risk benefit ratio favors no change other than as noted in my dictated progress note. Diagnosis: Problems: (1) Dementia (2) Obsessive compulsive disorder (3) Medical clearance for psychiatric admission (4) Anxiety disorder (5) Dementia in Alzheimer's disease with delusions (6) Dementia in Alzheimer's disease with depression (7) Dementia, vascular, with delusions (8) Dementia, vascular, with depression (9) Impulse control disorder MARCIAL HINTON MD Aug 06, 2017 20:39
[2017-08-07 05:54] VITALS: BP 133/57
[2017-08-07] MEDS: OXYBUTYNIN CHLORIDE 5 MG TABLET PO SCH ×2 (08:13→19:33)
[2017-08-07] MEDS: DONEPEZIL HCL 10 MG TABLET PO SCH (08:13)
[2017-08-07] MEDS: PANTOPRAZOLE 40 MG TABLET. PO SCH (08:13)
[2017-08-07] MEDS: MEMANTINE 5 MG TABLET. PO SCH ×2 (08:13→19:36)
[2017-08-07 16:23] VITALS: BP 185/62
--- NOTE | 2017-08-07 19:08 | PN ---
DATE: 08/05/2017 PSYCHIATRIC PROGRESS NOTE This is a late entry for 08/05/2017, covers elements not covered in my initial note of 08/05/2017. SUBJECTIVE: I met with the patient the evening of 08/05/2017. The patient slept 1-1/2 hours previous evening. Remains quite obsessive about flossing his teeth amongst other things. He also opens and repeatedly closes the closet door, switches on and off the bathroom lights, multiple other obsessive compulsive ritualistic behaviors noted per nursing staff. REVIEW OF SYSTEMS: No CV, , pulmonary, eye, ENT system symptoms on review, not very forthcoming, somewhat guarded, paranoid. MENTAL STATUS EXAM: Oriented to self and situation. Insight, judgment, recent memory is impaired. Language function intact. Attention span short. Mood and affect somewhat withdrawn, anxious, labile, obsessive. LABORATORY DATA: Reviewed. IMPRESSION: Major neurocognitive disorder, early Alzheimer, vascular with depression, delusion; obsessive compulsive disorder; anxiety disorder, unspecified. PLAN: Change Effexor to Luvox 50 mg at bedtime. Start Remeron 7.5 mg at bedtime since he slept just 1-1/2 hours previous evening. Start trazodone 50 mg at bedtime p.r.n., may repeat x 1 for insomnia. Adjust further as clinically indicated. MARCIAL HINTON MD DR: PRO/alvin JOB#: [id number] / [id number]
[2017-08-07] MEDS: ACETAMINOPHEN 500 MG TABLET PO SCH (19:33)
[2017-08-07] MEDS: MELATONIN 3 MG TABLET PO SCH (19:33)
[2017-08-07] MEDS: diphenhydrAMINE HCL 25 MG CAPSULE PO SCH (19:33)
[2017-08-07] MEDS: ATORVASTATIN CALCIUM 20 MG TABLET PO SCH (19:34)
[2017-08-07] MEDS: traZODone 50 MG TABLET. PO PRN (19:36)
[2017-08-07] MEDS: MIRTAZAPINE 7.5 MG TABLET. PO SCH (19:36)
--- NOTE | 2017-08-07 20:18 | PDOC ---
Exam Note: Mir Note: Please also refer to the separate dictated note~for this date of service dictated separately.~Patient seen individually. Discussed the patient with Nursing staff reviewed the chart.~Reviewed interim history and current functioning. Reviewed vital signs,~Labs/ Radiology~and current medications noted below. Continue current treatment with the changes noted in the dictated addendum note Assessment: Vital Signs: Vital Signs Date Time Temp Pulse Resp B/P (MAP) Pulse Ox O2 Delivery O2 Flow Rate FiO2 08/07/17 16:23 98.5 107 20 185/62 (103) 94 08/05/17 16:25 Room Air I&O Intake and Output 08/07/17 07:00 Intake Total 1440 ml Balance 1440 ml Intake Oral 1440 ml Current Medications: Meds: Current Medications Acetaminophen (Tylenol) 650 mg PRN Q6HRS PRN PO PAIN / TEMP; Start 08/03/17 at 23:00 Multi-Ingredient Ointment (Analgesic [place]) 1 tamara PRN QID PRN TP MUSCLE PAIN; Start 08/03/17 at 23:00 Al Hydroxide/Mg Hydroxide (Mylanta Plus Xs) 15 ml PRN AFTMEALHC PRN PO DYSPEPSIA; Start 08/03/17 at 23:00 Magnesium Hydroxide (Milk Of Magnesia) 2,400 mg PRN QHS PRN PO CONSTIPATION; Start 08/03/17 at 23:00 Meloxicam (Mobic) 15 mg DAILY PO Last administered on 08/04/17at 07:44; Start at 09:00; Stop 08/04/17 at 18:53; Status DC Venlafaxine HCl (Effexor) 150 mg HS PO Last administered on 08/04/17at 20:48; Start 08/04/17 at 21:00; Stop 08/05/17 at 19:31; Status DC Melatonin 6 mg QHS PO Last administered on 08/07/17at 19:33; Start 08/04/17 at 21:00 Olanzapine (ZyPREXA ZYDIS) 2.5 mg PRN Q2HR PRN PO ANXIETY / AGITATION; Start at 23:30 Donepezil HCl (Aricept) 10 mg DAILY PO Last administered on 08/07/17at 08:13; Start 08/04/17 at 09:00 Acetaminophen/ Aspirin/Caffeine (Excedrin Migraine) 2 tab HS PO ; Start at 21:00; Status Cancel Atorvastatin Calcium (Lipitor) 20 mg QHS PO Last administered on 08/07/17at 19: 34; Start 08/04/17 at 21:00 Oxybutynin Chloride (Ditropan) 5 mg BID PO Last administered on 08/07/17at 19:33 ; Start 08/04/17 at 09:00 Pantoprazole Sodium (Protonix) 40 mg DAILYAC PO Last administered on 08/07/17at 08:13; Start 08/04/17 at 07:30 Non-Formulary Medication 99 mg DAILY PO ; Start 08/04/17 at 09:00; Status UNV Non-Formulary Medication 500 mg BID PO ; Start 08/04/17 at 09:00; Status UNV Non-Formulary Medication 1 each HS PO ; Start 08/04/17 at 21:00; Status UNV Non-Formulary Medication 2 tab HS .ROUTE ; Start 08/04/17 at 21:00; Stop at 07:23; Status DC Memantine (Namenda) 5 mg DAILY PO Last administered on 08/07/17at 08:13; Start 08/04/17 at 09:00; Stop 08/07/17 at 19:03; Status DC Vitamin D (Vitamin D3) 50,000 unit WEEKLY PO Last administered on 08/04/17at 20: 47; Start 08/04/17 at 19:30 Acetaminophen (Tylenol) 1,000 mg QHS PO Last administered on 08/07/17at 19:33; Start 08/05/17 at 21:00 Diphenhydramine HCl (Benadryl) 50 mg QHS PO Last administered on 08/07/17at 19: 33; Start 08/05/17 at 21:00 Fluvoxamine Maleate (Luvox) 50 mg QHS PO Last administered on 08/06/17at 19:20; Start 08/05/17 at 21:00; Stop 08/07/17 at 19:03; Status DC Mirtazapine (Remeron) 7.5 mg QHS PO Last administered on 08/06/17at 19:19; Start 08/05/17 at 21:00; Stop 08/07/17 at 19:03; Status DC Trazodone HCl (Desyrel) 50 mg PRN QHS PRN PO INSOMNIA, MAY REPEAT X1 Last administered on 08/07/17at 19:36; Start 08/05/17 at 19:30 Fluvoxamine Maleate (Luvox) 75 mg QHS PO Last administered on 08/07/17at 19:34; Start 08/07/17 at 21:00 Memantine (Namenda) 5 mg BID PO Last administered on 08/07/17at 19:36; Start at 21:00 Mirtazapine (Remeron) 15 mg QHS PO Last administered on 08/07/17at 19:36; Start 08/07/17 at 21:00 Active Scripts Active Reported Potassium 99 Mg Tablet 99 Mg PO DAILY Namzaric 7 mg-10 mg Capsule (Memantine HCl/Donepezil HCl) 1 Each Cap.spr.24 1 Each PO DAILY Melatonin 3 Mg Tablet 5 Mg PO HS Saw [place] 500 Mg Capsule 500 Mg PO BID [excedrin pm] 2 Tab HS Excedrin Extra Strength Caplet (Aspirin/Acetaminophen/Caffeine) 1 Each Tablet 2 Each PO Atorvastatin Calcium 20 Mg Tablet 20 Mg PO QHS Venlafaxine Hcl 75 Mg Tablet 150 Mg PO HS Co-Enzyme Q10 100 mg Softgel (Ubidecarenone/Vit E/Vit E Mix) 1 Each Capsule 1 Each PO HS Oxybutynin Chloride 5 Mg Tablet 5 Mg PO BID Meloxicam 15 Mg Tablet 15 Mg PO DAILY Nexium Capsule (Esomeprazole Magnesium) 40 Mg Capsule. 40 Mg PO DAILYAC I have reviewed the current psychotropics carefully including drug interactions. Risk benefit ratio favors no change other than as noted in my dictated progress note. Diagnosis: Problems: (1) Dementia (2) Obsessive compulsive disorder (3) Medical clearance for psychiatric admission (4) Anxiety disorder (5) Dementia in Alzheimer's disease with delusions (6) Dementia in Alzheimer's disease with depression (7) Dementia, vascular, with delusions (8) Dementia, vascular, with depression (9) Impulse control disorder MARCIAL HINTON MD Aug 07, 2017 20:18
[2017-08-08 06:32] VITALS: BP 151/81
[2017-08-08] MEDS: PANTOPRAZOLE 40 MG TABLET. PO SCH (09:01)
[2017-08-08] MEDS: OXYBUTYNIN CHLORIDE 5 MG TABLET PO SCH ×2 (09:01→19:52)
[2017-08-08] MEDS: MEMANTINE 5 MG TABLET. PO SCH ×2 (09:01→19:52)
[2017-08-08] MEDS: DONEPEZIL HCL 10 MG TABLET PO SCH (09:01)
[2017-08-08 16:09] VITALS: BP 151/76
[2017-08-08] MEDS: ATORVASTATIN CALCIUM 20 MG TABLET PO SCH (19:52)
[2017-08-08] MEDS: MIRTAZAPINE 7.5 MG TABLET. PO SCH (19:52)
[2017-08-08] MEDS: ACETAMINOPHEN 500 MG TABLET PO SCH (19:52)
[2017-08-08] MEDS: diphenhydrAMINE HCL 25 MG CAPSULE PO SCH (19:52)
[2017-08-08] MEDS: MELATONIN 3 MG TABLET PO SCH (19:53)
[2017-08-08] MEDS: traZODone 50 MG TABLET. PO SCH (19:57)
--- NOTE | 2017-08-08 20:21 | PDOC ---
Exam Note: Mir Note: Please also refer to the separate dictated note~for this date of service dictated separately.~Patient seen individually. Discussed the patient with Nursing staff reviewed the chart.~Reviewed interim history and current functioning. Reviewed vital signs,~Labs/ Radiology~and current medications noted below. Continue current treatment with the changes noted in the dictated addendum note Assessment: Vital Signs: Vital Signs Date Time Temp Pulse Resp B/P (MAP) Pulse Ox O2 Delivery O2 Flow Rate FiO2 08/08/17 16:09 98.0 93 16 151/76 (101) 97 08/08/17 06:32 Room Air I&O Intake and Output 08/08/17 07:00 Intake Total 1680 ml Balance 1680 ml Intake Oral 1680 ml # Voids 2 Current Medications: Meds: Current Medications Acetaminophen (Tylenol) 650 mg PRN Q6HRS PRN PO PAIN / TEMP; Start 08/03/17 at 23:00 Multi-Ingredient Ointment (Analgesic [place]) 1 tamara PRN QID PRN TP MUSCLE PAIN; Start 08/03/17 at 23:00 Al Hydroxide/Mg Hydroxide (Mylanta Plus Xs) 15 ml PRN AFTMEALHC PRN PO DYSPEPSIA; Start 08/03/17 at 23:00 Magnesium Hydroxide (Milk Of Magnesia) 2,400 mg PRN QHS PRN PO CONSTIPATION; Start 08/03/17 at 23:00 Meloxicam (Mobic) 15 mg DAILY PO Last administered on 08/04/17at 07:44; Start at 09:00; Stop 08/04/17 at 18:53; Status DC Venlafaxine HCl (Effexor) 150 mg HS PO Last administered on 08/04/17at 20:48; Start 08/04/17 at 21:00; Stop 08/05/17 at 19:31; Status DC Melatonin 6 mg QHS PO Last administered on 08/08/17at 19:53; Start 08/04/17 at 21:00 Olanzapine (ZyPREXA ZYDIS) 2.5 mg PRN Q2HR PRN PO ANXIETY / AGITATION; Start at 23:30 Donepezil HCl (Aricept) 10 mg DAILY PO Last administered on 08/08/17at 09:01; Start 08/04/17 at 09:00 Acetaminophen/ Aspirin/Caffeine (Excedrin Migraine) 2 tab HS PO ; Start at 21:00; Status Cancel Atorvastatin Calcium (Lipitor) 20 mg QHS PO Last administered on 08/08/17at 19: 52; Start 08/04/17 at 21:00 Oxybutynin Chloride (Ditropan) 5 mg BID PO Last administered on 08/08/17at 19:52 ; Start 08/04/17 at 09:00 Pantoprazole Sodium (Protonix) 40 mg DAILYAC PO Last administered on 08/08/17at 09:01; Start 08/04/17 at 07:30 Non-Formulary Medication 99 mg DAILY PO ; Start 08/04/17 at 09:00; Status UNV Non-Formulary Medication 500 mg BID PO ; Start 08/04/17 at 09:00; Status UNV Non-Formulary Medication 1 each HS PO ; Start 08/04/17 at 21:00; Status UNV Non-Formulary Medication 2 tab HS .ROUTE ; Start 08/04/17 at 21:00; Stop at 07:23; Status DC Memantine (Namenda) 5 mg DAILY PO Last administered on 08/07/17at 08:13; Start 08/04/17 at 09:00; Stop 08/07/17 at 19:03; Status DC Vitamin D (Vitamin D3) 50,000 unit WEEKLY PO Last administered on 08/04/17at 20: 47; Start 08/04/17 at 19:30 Acetaminophen (Tylenol) 1,000 mg QHS PO Last administered on 08/08/17at 19:52; Start 08/05/17 at 21:00 Diphenhydramine HCl (Benadryl) 50 mg QHS PO Last administered on 08/08/17at 19: 52; Start 08/05/17 at 21:00 Fluvoxamine Maleate (Luvox) 50 mg QHS PO Last administered on 08/06/17at 19:20; Start 08/05/17 at 21:00; Stop 08/07/17 at 19:03; Status DC Mirtazapine (Remeron) 7.5 mg QHS PO Last administered on 08/06/17at 19:19; Start 08/05/17 at 21:00; Stop 08/07/17 at 19:03; Status DC Trazodone HCl (Desyrel) 50 mg PRN QHS PRN PO INSOMNIA, MAY REPEAT X1 Last administered on 08/07/17at 19:36; Start 08/05/17 at 19:30; Stop 08/08/17 at 18:11 ; Status DC Fluvoxamine Maleate (Luvox) 75 mg QHS PO Last administered on 08/08/17at 19:52; Start 08/07/17 at 21:00 Memantine (Namenda) 5 mg BID PO Last administered on 08/08/17at 19:52; Start at 21:00 Mirtazapine (Remeron) 15 mg QHS PO Last administered on 08/08/17at 19:52; Start 08/07/17 at 21:00 Trazodone HCl (Desyrel) 50 mg QHS PO Last administered on 08/08/17at 19:57; Start 08/08/17 at 21:00 Active Scripts Active Reported Potassium 99 Mg Tablet 99 Mg PO DAILY Namzaric 7 mg-10 mg Capsule (Memantine HCl/Donepezil HCl) 1 Each Cap.spr.24 1 Each PO DAILY Melatonin 3 Mg Tablet 5 Mg PO HS Saw [place] 500 Mg Capsule 500 Mg PO BID [excedrin pm] 2 Tab HS Excedrin Extra Strength Caplet (Aspirin/Acetaminophen/Caffeine) 1 Each Tablet 2 Each PO Atorvastatin Calcium 20 Mg Tablet 20 Mg PO QHS Venlafaxine Hcl 75 Mg Tablet 150 Mg PO HS Co-Enzyme Q10 100 mg Softgel (Ubidecarenone/Vit E/Vit E Mix) 1 Each Capsule 1 Each PO HS Oxybutynin Chloride 5 Mg Tablet 5 Mg PO BID Meloxicam 15 Mg Tablet 15 Mg PO DAILY Nexium Capsule (Esomeprazole Magnesium) 40 Mg Capsule.dr 40 Mg PO DAILYAC I have reviewed the current psychotropics carefully including drug interactions. Risk benefit ratio favors no change other than as noted in my dictated progress note. Diagnosis: Problems: (1) Dementia (2) Obsessive compulsive disorder (3) Medical clearance for psychiatric admission (4) Anxiety disorder (5) Dementia in Alzheimer's disease with delusions (6) Dementia in Alzheimer's disease with depression (7) Dementia, vascular, with delusions (8) Dementia, vascular, with depression (9) Impulse control disorder JAMAAL,MAN M MD Aug 08, 2017 20:21
--- NOTE | 2017-08-09 00:27 | PN ---
DATE: 08/06/2017 This is a late entry for 08/06/2017 and covers the elements not covered in my initial note of 08/06/2017. SUBJECTIVE: I met with the patient in the evening of 08/06/2017. Overall, the patient remains confused, but calmer, still withdrawn, depressed, minimizes most of his problems. REVIEW OF SYSTEMS: No CV, , pulmonary, eye system symptoms on review. Reliability poor. MENTAL STATUS EXAM: Oriented to himself, situation at times. Speech moderate latency, often responses monosyllabic. Abstraction fair, computation impaired, language function intact. Mood and affect showing improvement, still withdrawn. LABORATORY DATA: Reviewed. IMPRESSION: Major neurocognitive disorder, Alzheimer, vascular with depression, delusion. Rest unchanged. PLAN: Continue current psychotropics, Luvox is 50 mg at bedtime for his obsessive thought processes, may need to increase this. MAN Raysa HINTON MD DR: PRO/alvin JOB#: [id number] / [id number]
--- NOTE | 2017-08-09 00:50 | PN ---
DATE: 08/07/2017 This is a late entry for 08/07/2017 covers elements not covered in my initial note of 08/07/2017. SUBJECTIVE: I met with the patient in the evening of 08/07/2017. The patient slept 4-3/4 hours previous evening. He has been flat, withdrawn, isolative, anxious the previous evening. REVIEW OF SYSTEMS: No CV, , pulmonary, eye, ENT system symptoms on review. Minimizes most problems, wants to be discharged. MENTAL STATUS EXAM: Oriented to himself. Insight, judgment, recent and remote memory, attention, concentration, fund of knowledge poor, consistent with his diagnosis. As I questioned him about his appetite, he said his appetite is excellent that he had 3 desserts. In fact, checking with staff, this is not accurate. He said he slept poorly the previous evening because it is too noisy. We discussed earplugs, remains somewhat obsessive. LABORATORY DATA: Reviewed. IMPRESSION: Major neurocognitive disorder, Alzheimer, vascular with depression, delusion, obsessive compulsive disorder, anxiety disorder, unspecified. PLAN: Increase Remeron to 15 mg at bedtime, Namenda from 5 mg daily to 5 mg twice a day, Luvox from 50 mg at bedtime to 75 mg at bedtime starting 08/08/2017. Adjust further as clinically indicated. MAN Raysa HINTON MD DR: PRO/alvin JOB#: [id number] / [id number]
[2017-08-09 06:27] VITALS: BP 149/81
[2017-08-09] MEDS: PANTOPRAZOLE 40 MG TABLET. PO SCH (08:57)
[2017-08-09] MEDS: MEMANTINE 5 MG TABLET. PO SCH ×2 (08:57→20:23)
[2017-08-09] MEDS: OXYBUTYNIN CHLORIDE 5 MG TABLET PO SCH ×2 (08:57→20:23)
[2017-08-09] MEDS: DONEPEZIL HCL 10 MG TABLET PO SCH (08:57)
[2017-08-09 16:44] VITALS: BP 163/89
[2017-08-09] MEDS: diphenhydrAMINE HCL 25 MG CAPSULE PO SCH (20:22)
[2017-08-09] MEDS: ACETAMINOPHEN 500 MG TABLET PO SCH (20:22)
--- NOTE | 2017-08-09 20:22 | PDOC ---
Exam Note: Mir Note: Please also refer to the separate dictated note~for this date of service dictated separately.~Patient seen individually. Discussed the patient with Nursing staff reviewed the chart.~Reviewed interim history and current functioning. Reviewed vital signs,~Labs/ Radiology~and current medications noted below. Continue current treatment with the changes noted in the dictated addendum note Assessment: Vital Signs: Vital Signs Date Time Temp Pulse Resp B/P (MAP) Pulse Ox O2 Delivery O2 Flow Rate FiO2 08/09/17 16:44 98.5 96 18 163/89 (113) 98 Room Air I&O Intake and Output 08/09/17 07:00 Intake Total 1980 ml Balance 1980 ml Intake Oral 1980 ml # Voids 2 Current Medications: Meds: Current Medications Acetaminophen (Tylenol) 650 mg PRN Q6HRS PRN PO PAIN / TEMP; Start 08/03/17 at 23:00 Multi-Ingredient Ointment (Analgesic [place]) 1 tamara PRN QID PRN TP MUSCLE PAIN; Start 08/03/17 at 23:00 Al Hydroxide/Mg Hydroxide (Mylanta Plus Xs) 15 ml PRN AFTMEALHC PRN PO DYSPEPSIA; Start 08/03/17 at 23:00 Magnesium Hydroxide (Milk Of Magnesia) 2,400 mg PRN QHS PRN PO CONSTIPATION; Start 08/03/17 at 23:00 Meloxicam (Mobic) 15 mg DAILY PO Last administered on 08/04/17at 07:44; Start at 09:00; Stop 08/04/17 at 18:53; Status DC Venlafaxine HCl (Effexor) 150 mg HS PO Last administered on 08/04/17at 20:48; Start 08/04/17 at 21:00; Stop 08/05/17 at 19:31; Status DC Melatonin 6 mg QHS PO Last administered on 08/08/17at 19:53; Start 08/04/17 at 21:00 Olanzapine (ZyPREXA ZYDIS) 2.5 mg PRN Q2HR PRN PO ANXIETY / AGITATION; Start at 23:30 Donepezil HCl (Aricept) 10 mg DAILY PO Last administered on 08/09/17at 08:57; Start 08/04/17 at 09:00 Acetaminophen/ Aspirin/Caffeine (Excedrin Migraine) 2 tab HS PO ; Start at 21:00; Status Cancel Atorvastatin Calcium (Lipitor) 20 mg QHS PO Last administered on 08/08/17at 19: 52; Start 08/04/17 at 21:00 Oxybutynin Chloride (Ditropan) 5 mg BID PO Last administered on 08/09/17at 08:57 ; Start 08/04/17 at 09:00 Pantoprazole Sodium (Protonix) 40 mg DAILYAC PO Last administered on 08/09/17at 08:57; Start 08/04/17 at 07:30 Non-Formulary Medication 99 mg DAILY PO ; Start 08/04/17 at 09:00; Status UNV Non-Formulary Medication 500 mg BID PO ; Start 08/04/17 at 09:00; Status UNV Non-Formulary Medication 1 each HS PO ; Start 08/04/17 at 21:00; Status UNV Non-Formulary Medication 2 tab HS .ROUTE ; Start 08/04/17 at 21:00; Stop at 07:23; Status DC Memantine (Namenda) 5 mg DAILY PO Last administered on 08/07/17at 08:13; Start 08/04/17 at 09:00; Stop 08/07/17 at 19:03; Status DC Vitamin D (Vitamin D3) 50,000 unit WEEKLY PO Last administered on 08/04/17at 20: 47; Start 08/04/17 at 19:30 Acetaminophen (Tylenol) 1,000 mg QHS PO Last administered on 08/08/17at 19:52; Start 08/05/17 at 21:00 Diphenhydramine HCl (Benadryl) 50 mg QHS PO Last administered on 08/08/17at 19: 52; Start 08/05/17 at 21:00 Fluvoxamine Maleate (Luvox) 50 mg QHS PO Last administered on 08/06/17at 19:20; Start 08/05/17 at 21:00; Stop 08/07/17 at 19:03; Status DC Mirtazapine (Remeron) 7.5 mg QHS PO Last administered on 08/06/17at 19:19; Start 08/05/17 at 21:00; Stop 08/07/17 at 19:03; Status DC Trazodone HCl (Desyrel) 50 mg PRN QHS PRN PO INSOMNIA, MAY REPEAT X1 Last administered on 08/07/17at 19:36; Start 08/05/17 at 19:30; Stop 08/08/17 at 18:11 ; Status DC Fluvoxamine Maleate (Luvox) 75 mg QHS PO Last administered on 08/08/17at 19:52; Start 08/07/17 at 21:00 Memantine (Namenda) 5 mg BID PO Last administered on 08/09/17at 08:57; Start at 21:00 Mirtazapine (Remeron) 15 mg QHS PO Last administered on 08/08/17at 19:52; Start 08/07/17 at 21:00 Trazodone HCl (Desyrel) 50 mg QHS PO Last administered on 08/08/17at 19:57; Start 08/08/17 at 21:00 Active Scripts Active Reported Potassium 99 Mg Tablet 99 Mg PO DAILY Namzaric 7 mg-10 mg Capsule (Memantine HCl/Donepezil HCl) 1 Each Cap.spr.24 1 Each PO DAILY Melatonin 3 Mg Tablet 5 Mg PO HS Saw [place] 500 Mg Capsule 500 Mg PO BID [excedrin pm] 2 Tab HS Excedrin Extra Strength Caplet (Aspirin/Acetaminophen/Caffeine) 1 Each Tablet 2 Each PO Atorvastatin Calcium 20 Mg Tablet 20 Mg PO QHS Venlafaxine Hcl 75 Mg Tablet 150 Mg PO HS Co-Enzyme Q10 100 mg Softgel (Ubidecarenone/Vit E/Vit E Mix) 1 Each Capsule 1 Each PO HS Oxybutynin Chloride 5 Mg Tablet 5 Mg PO BID Meloxicam 15 Mg Tablet 15 Mg PO DAILY Nexium Capsule (Esomeprazole Magnesium) 40 Mg Capsule. 40 Mg PO DAILYAC I have reviewed the current psychotropics carefully including drug interactions. Risk benefit ratio favors no change other than as noted in my dictated progress note. Diagnosis: Problems: (1) Dementia (2) Obsessive compulsive disorder (3) Medical clearance for psychiatric admission (4) Anxiety disorder (5) Dementia in Alzheimer's disease with delusions (6) Dementia in Alzheimer's disease with depression (7) Dementia, vascular, with delusions (8) Dementia, vascular, with depression (9) Impulse control disorder MARCIAL HINTON MD Aug 09, 2017 20:22
[2017-08-09] MEDS: MIRTAZAPINE 7.5 MG TABLET. PO SCH (20:23)
[2017-08-09] MEDS: ATORVASTATIN CALCIUM 20 MG TABLET PO SCH (20:23)
[2017-08-09] MEDS: MELATONIN 3 MG TABLET PO SCH (20:23)
[2017-08-09] MEDS: traZODone 50 MG TABLET. PO SCH (20:23)
--- NOTE | 2017-08-10 05:58 | PN ---
DATE: 08/08/2017 PSYCHIATRIC PROGRESS NOTE This is late entry 08/08/2017 covers elements not covered in my initial note 08/08/2017. SUBJECTIVE: Met with the patient in the evening of 08/08/2017. The patient has been withdrawn, confused, spit this morning, meds out, able to state "I am confused." Previous evening, he was found standing on his basin, washing his underwears. Nursing staff were able to tell him that they are able to do his washing in the machine. He remains obsessed being at the basin and wanting his emesis basin in which he has put some of his belongings. He is looking for it at all the time. Nursing staff have placed that in the closet, opening, closing doors, and repeatedly counting obsessively. REVIEW OF SYSTEMS: No CV, , pulmonary, eye, ENT system symptoms on review. MENTAL STATUS EXAM: Oriented to himself and situation. Speech moderate latency, often responses monosyllabic. Abstraction fair, computation impaired, language function intact, attention span short. Mood and affect remain somewhat withdrawn. LABORATORY DATA: Reviewed. IMPRESSION: Major neurocognitive disorder; Alzheimer, vascular with delusion; depression. PLAN: Change trazodone p.r.n. to 50 mg scheduled at bedtime, may repeat x 1. Continue Rest unchanged, Luvox 75 mg at bedtime, may need to be increased gradually. MARCIAL HINTON MD DR: PRO/alvin JOB#: [id number] / [id number]
[2017-08-10 06:41] VITALS: BP 137/82
[2017-08-10] MEDS: PANTOPRAZOLE 40 MG TABLET. PO SCH (08:37)
[2017-08-10] MEDS: DONEPEZIL HCL 10 MG TABLET PO SCH (08:38)
[2017-08-10] MEDS: OXYBUTYNIN CHLORIDE 5 MG TABLET PO SCH ×2 (08:38→20:14)
[2017-08-10] MEDS: MEMANTINE 5 MG TABLET. PO SCH ×2 (08:38→20:14)
[2017-08-10 16:00] VITALS: BP 133/69
[2017-08-10] MEDS: ATORVASTATIN CALCIUM 20 MG TABLET PO SCH (20:13)
[2017-08-10] MEDS: ACETAMINOPHEN 500 MG TABLET PO SCH (20:14)
[2017-08-10] MEDS: diphenhydrAMINE HCL 25 MG CAPSULE PO SCH (20:14)
[2017-08-10] MEDS: traZODone 50 MG TABLET. PO SCH (20:14)
[2017-08-10] MEDS: MIRTAZAPINE 7.5 MG TABLET. PO SCH (20:15)
[2017-08-10] MEDS: MELATONIN 3 MG TABLET PO SCH (20:15)
--- NOTE | 2017-08-10 20:22 | PDOC ---
Exam Note: Mir Note: Please also refer to the separate dictated note~for this date of service dictated separately.~Patient seen individually. Discussed the patient with Nursing staff reviewed the chart.~Reviewed interim history and current functioning. Reviewed vital signs,~Labs/ Radiology~and current medications noted below. Continue current treatment with the changes noted in the dictated addendum note Assessment: Vital Signs: Vital Signs Date Time Temp Pulse Resp B/P (MAP) Pulse Ox O2 Delivery O2 Flow Rate FiO2 08/10/17 16:00 99.2 96 20 133/69 (90) 95 08/09/17 16:44 Room Air I&O Intake and Output 08/10/17 07:00 Intake Total 1500 ml Balance 1500 ml Intake Oral 1500 ml Current Medications: Meds: Current Medications Acetaminophen (Tylenol) 650 mg PRN Q6HRS PRN PO PAIN / TEMP Last administered on 08/10/17at 15:54; Start 08/03/17 at 23:00 Multi-Ingredient Ointment (Analgesic [place]) 1 tamara PRN QID PRN TP MUSCLE PAIN; Start 08/03/17 at 23:00 Al Hydroxide/Mg Hydroxide (Mylanta Plus Xs) 15 ml PRN AFTMEALHC PRN PO DYSPEPSIA; Start 08/03/17 at 23:00 Magnesium Hydroxide (Milk Of Magnesia) 2,400 mg PRN QHS PRN PO CONSTIPATION; Start 08/03/17 at 23:00 Meloxicam (Mobic) 15 mg DAILY PO Last administered on 08/04/17at 07:44; Start at 09:00; Stop 08/04/17 at 18:53; Status DC Venlafaxine HCl (Effexor) 150 mg HS PO Last administered on 08/04/17at 20:48; Start 08/04/17 at 21:00; Stop 08/05/17 at 19:31; Status DC Melatonin 6 mg QHS PO Last administered on 08/10/17at 20:15; Start 08/04/17 at 21:00 Olanzapine (ZyPREXA ZYDIS) 2.5 mg PRN Q2HR PRN PO ANXIETY / AGITATION; Start at 23:30 Donepezil HCl (Aricept) 10 mg DAILY PO Last administered on 08/10/17at 08:38; Start 08/04/17 at 09:00 Acetaminophen/ Aspirin/Caffeine (Excedrin Migraine) 2 tab HS PO ; Start at 21:00; Status Cancel Atorvastatin Calcium (Lipitor) 20 mg QHS PO Last administered on 08/10/17at 20: 13; Start 08/04/17 at 21:00 Oxybutynin Chloride (Ditropan) 5 mg BID PO Last administered on 08/10/17at 20:14 ; Start 08/04/17 at 09:00 Pantoprazole Sodium (Protonix) 40 mg DAILYAC PO Last administered on 08/10/17at 08:37; Start 08/04/17 at 07:30 Non-Formulary Medication 99 mg DAILY PO ; Start 08/04/17 at 09:00; Status UNV Non-Formulary Medication 500 mg BID PO ; Start 08/04/17 at 09:00; Status UNV Non-Formulary Medication 1 each HS PO ; Start 08/04/17 at 21:00; Status UNV Non-Formulary Medication 2 tab HS .ROUTE ; Start 08/04/17 at 21:00; Stop at 07:23; Status DC Memantine (Namenda) 5 mg DAILY PO Last administered on 08/07/17at 08:13; Start 08/04/17 at 09:00; Stop 08/07/17 at 19:03; Status DC Vitamin D (Vitamin D3) 50,000 unit WEEKLY PO Last administered on 08/04/17at 20: 47; Start 08/04/17 at 19:30 Acetaminophen (Tylenol) 1,000 mg QHS PO Last administered on 08/10/17at 20:14; Start 08/05/17 at 21:00 Diphenhydramine HCl (Benadryl) 50 mg QHS PO Last administered on 08/10/17at 20: 14; Start 08/05/17 at 21:00 Fluvoxamine Maleate (Luvox) 50 mg QHS PO Last administered on 08/06/17at 19:20; Start 08/05/17 at 21:00; Stop 08/07/17 at 19:03; Status DC Mirtazapine (Remeron) 7.5 mg QHS PO Last administered on 08/06/17at 19:19; Start 08/05/17 at 21:00; Stop 08/07/17 at 19:03; Status DC Trazodone HCl (Desyrel) 50 mg PRN QHS PRN PO INSOMNIA, MAY REPEAT X1 Last administered on 08/07/17at 19:36; Start 08/05/17 at 19:30; Stop 08/08/17 at 18:11 ; Status DC Fluvoxamine Maleate (Luvox) 75 mg QHS PO Last administered on 08/10/17at 20:14; Start 08/07/17 at 21:00 Memantine (Namenda) 5 mg BID PO Last administered on 08/10/17at 20:14; Start at 21:00 Mirtazapine (Remeron) 15 mg QHS PO Last administered on 08/10/17at 20:15; Start 08/07/17 at 21:00 Trazodone HCl (Desyrel) 50 mg QHS PO Last administered on 08/10/17at 20:14; Start 08/08/17 at 21:00 Active Scripts Active Reported Potassium 99 Mg Tablet 99 Mg PO DAILY Namzaric 7 mg-10 mg Capsule (Memantine HCl/Donepezil HCl) 1 Each Cap.spr.24 1 Each PO DAILY Melatonin 3 Mg Tablet 5 Mg PO HS Saw [place] 500 Mg Capsule 500 Mg PO BID [excedrin pm] 2 Tab HS Excedrin Extra Strength Caplet (Aspirin/Acetaminophen/Caffeine) 1 Each Tablet 2 Each PO Atorvastatin Calcium 20 Mg Tablet 20 Mg PO QHS Venlafaxine Hcl 75 Mg Tablet 150 Mg PO HS Co-Enzyme Q10 100 mg Softgel (Ubidecarenone/Vit E/Vit E Mix) 1 Each Capsule 1 Each PO HS Oxybutynin Chloride 5 Mg Tablet 5 Mg PO BID Meloxicam 15 Mg Tablet 15 Mg PO DAILY Nexium Capsule (Esomeprazole Magnesium) 40 Mg Capsule. 40 Mg PO DAILYAC I have reviewed the current psychotropics carefully including drug interactions. Risk benefit ratio favors no change other than as noted in my dictated progress note. Diagnosis: Problems: (1) Dementia (2) Obsessive compulsive disorder (3) Medical clearance for psychiatric admission (4) Anxiety disorder (5) Dementia in Alzheimer's disease with delusions (6) Dementia in Alzheimer's disease with depression (7) Dementia, vascular, with delusions (8) Dementia, vascular, with depression (9) Impulse control disorder MARCIAL HINTON MD Aug 10, 2017 20:22
[2017-08-11 06:07] VITALS: BP 137/86
[2017-08-11 07:11] LABS: BASO # 0.1 x10^3/uL (0.0-0.2); BASO % 1 % (0-3); EOS # 0.2 x10^3/uL (0.0-0.7); EOS % 3 % (0-3); HEMATOCRIT 43.7 % (39.0-53.0); HEMOGLOBIN 14.9 g/dL (13.0-17.5); LYMPH # 2.1 x10^3/uL (1.0-4.8); LYMPH % 27 % (24-48); MEAN CORPUSCULAR HEMOGLOBIN 31 pg (25-35); MEAN CORPUSCULAR HGB CONC 34 g/dL (31-37); MEAN CORPUSCULAR VOLUME 91 fL (79-100); MONO # 0.8 x10^3/uL (0.0-1.1); MONO % 10 % (0-9); NEUT # 4.6 x10^3uL (1.8-7.7); NEUT % 59 % (31-73); PLATELET COUNT 225 x10^3/uL (140-400); RED BLOOD COUNT 4.82 x10^6/uL (4.30-5.70); RED CELL DISTRIBUTION WIDTH 13.8 % (11.5-14.5); WHITE BLOOD COUNT 7.8 x10^3/uL (4.0-11.0)
[2017-08-11 07:18] LABS: ALBUMIN 3.5 g/dL (3.4-5.0); ALBUMIN/GLOBULIN RATIO 1.2 (1.0-1.7); CALCIUM 8.7 mg/dL (8.5-10.1); GFR 74.3; TOTAL BILIRUBIN 0.3 mg/dL (0.2-1.0); TOTAL PROTEIN 6.5 g/dL (6.4-8.2)
[2017-08-11] MEDS: CHOLECALCIFEROL (VITAMIN D3) 50,000 UNIT CAPSULE PO SCH (07:46)
[2017-08-11] MEDS: DONEPEZIL HCL 10 MG TABLET PO SCH (07:46)
[2017-08-11] MEDS: MEMANTINE 5 MG TABLET. PO SCH ×2 (07:46→20:20)
[2017-08-11] MEDS: PANTOPRAZOLE 40 MG TABLET. PO SCH (07:46)
[2017-08-11] MEDS: OXYBUTYNIN CHLORIDE 5 MG TABLET PO SCH ×2 (07:46→20:21)
[2017-08-11 16:09] VITALS: BP 137/78
--- NOTE | 2017-08-11 20:09 | PDOC ---
Exam Note: Mir Note: Please also refer to the separate dictated note~for this date of service dictated separately.~Patient seen individually. Discussed the patient with Nursing staff reviewed the chart.~Reviewed interim history and current functioning. Reviewed vital signs,~Labs/ Radiology~and current medications noted below. Continue current treatment with the changes noted in the dictated addendum note Assessment: Vital Signs: Vital Signs Date Time Temp Pulse Resp B/P (MAP) Pulse Ox O2 Delivery O2 Flow Rate FiO2 08/11/17 16:09 98.8 105 16 137/78 (97) 95 08/09/17 16:44 Room Air I&O Intake and Output 08/11/17 07:00 Intake Total 1680 ml Balance 1680 ml Intake Oral 1680 ml Labs: Laboratory Tests Test 08/11/17 06:40 White Blood Count 7.8 x10^3/uL (4.0-11.0) Red Blood Count 4.82 x10^6/uL (4.30-5.70) Hemoglobin 14.9 g/dL (13.0-17.5) Hematocrit 43.7 % (39.0-53.0) Mean Corpuscular Volume 91 fL (79-100) Mean Corpuscular Hemoglobin 31 pg (25-35) Mean Corpuscular Hemoglobin Concent 34 g/dL (31-37) Red Cell Distribution Width 13.8 % (11.5-14.5) Platelet Count 225 x10^3/uL (140-400) Neutrophils (%) (Auto) 59 % (31-73) Lymphocytes (%) (Auto) 27 % (24-48) Monocytes (%) (Auto) 10 % (0-9) H Eosinophils (%) (Auto) 3 % (0-3) Basophils (%) (Auto) 1 % (0-3) Neutrophils # (Auto) 4.6 x10^3uL (1.8-7.7) Lymphocytes # (Auto) 2.1 x10^3/uL (1.0-4.8) Monocytes # (Auto) 0.8 x10^3/uL (0.0-1.1) Eosinophils # (Auto) 0.2 x10^3/uL (0.0-0.7) Basophils # (Auto) 0.1 x10^3/uL (0.0-0.2) Sodium Level 146 mmol/L (136-145) H Potassium Level 4.0 mmol/L (3.5-5.1) Chloride Level 106 mmol/L (98-107) Carbon Dioxide Level 33 mmol/L (21-32) H Anion Gap 7 (6-14) Blood Urea Nitrogen 13 mg/dL (8-26) Creatinine 1.0 mg/dL (0.7-1.3) Estimated GFR (Cockcroft-Gault) 74.3 BUN/Creatinine Ratio 13 (6-20) Glucose Level 119 mg/dL (70-99) H Calcium Level 8.7 mg/dL (8.5-10.1) Total Bilirubin 0.3 mg/dL (0.2-1.0) Aspartate Amino Transferase (AST) 17 U/L (15-37) Alanine Aminotransferase (ALT) 32 U/L (16-63) Alkaline Phosphatase 72 U/L (46-116) Total Protein 6.5 g/dL (6.4-8.2) Albumin 3.5 g/dL (3.4-5.0) Albumin/Globulin Ratio 1.2 (1.0-1.7) Current Medications: Meds: Current Medications Acetaminophen (Tylenol) 650 mg PRN Q6HRS PRN PO PAIN / TEMP Last administered on 08/10/17at 15:54; Start 08/03/17 at 23:00 Multi-Ingredient Ointment (Analgesic [place]) 1 tamara PRN QID PRN TP MUSCLE PAIN; Start 08/03/17 at 23:00 Al Hydroxide/Mg Hydroxide (Mylanta Plus Xs) 15 ml PRN AFTMEALHC PRN PO DYSPEPSIA; Start 08/03/17 at 23:00 Magnesium Hydroxide (Milk Of Magnesia) 2,400 mg PRN QHS PRN PO CONSTIPATION; Start 08/03/17 at 23:00 Meloxicam (Mobic) 15 mg DAILY PO Last administered on 08/04/17at 07:44; Start at 09:00; Stop 08/04/17 at 18:53; Status DC Venlafaxine HCl (Effexor) 150 mg HS PO Last administered on 08/04/17at 20:48; Start 08/04/17 at 21:00; Stop 08/05/17 at 19:31; Status DC Melatonin 6 mg QHS PO Last administered on 08/10/17 20:15; Start 08/04/17 at 21:00 Olanzapine (ZyPREXA ZYDIS) 2.5 mg PRN Q2HR PRN PO ANXIETY / AGITATION; Start at 23:30 Donepezil HCl (Aricept) 10 mg DAILY PO Last administered on 08/11/17at 07:46; Start 08/04/17 at 09:00 Acetaminophen/ Aspirin/Caffeine (Excedrin Migraine) 2 tab HS PO ; Start at 21:00; Status Cancel Atorvastatin Calcium (Lipitor) 20 mg QHS PO Last administered on 08/10/17 20: 13; Start 08/04/17 at 21:00 Oxybutynin Chloride (Ditropan) 5 mg BID PO Last administered on 08/11/17 07:46 ; Start 08/04/17 at 09:00 Pantoprazole Sodium (Protonix) 40 mg DAILYAC PO Last administered on 08/11/17 07:46; Start 08/04/17 at 07:30 Non-Formulary Medication 99 mg DAILY PO ; Start 08/04/17 at 09:00; Status UNV Non-Formulary Medication 500 mg BID PO ; Start 08/04/17 at 09:00; Status UNV Non-Formulary Medication 1 each HS PO ; Start 08/04/17 at 21:00; Status UNV Non-Formulary Medication 2 tab HS .ROUTE ; Start 08/04/17 at 21:00; Stop at 07:23; Status DC Memantine (Namenda) 5 mg DAILY PO Last administered on 08/07/17at 08:13; Start 08/04/17 at 09:00; Stop 08/07/17 at 19:03; Status DC Vitamin D (Vitamin D3) 50,000 unit WEEKLY PO Last administered on 08/11/17 07: 46; Start 08/04/17 at 19:30 Acetaminophen (Tylenol) 1,000 mg QHS PO Last administered on 08/10/17 20:14; Start 08/05/17 at 21:00 Diphenhydramine HCl (Benadryl) 50 mg QHS PO Last administered on 08/10/17 20: 14; Start 08/05/17 at 21:00 Fluvoxamine Maleate (Luvox) 50 mg QHS PO Last administered on 08/06/17at 19:20; Start 08/05/17 at 21:00; Stop 08/07/17 at 19:03; Status DC Mirtazapine (Remeron) 7.5 mg QHS PO Last administered on 08/06/17at 19:19; Start 08/05/17 at 21:00; Stop 08/07/17 at 19:03; Status DC Trazodone HCl (Desyrel) 50 mg PRN QHS PRN PO INSOMNIA, MAY REPEAT X1 Last administered on 08/07/17at 19:36; Start 08/05/17 at 19:30; Stop 08/08/17 at 18:11 ; Status DC Fluvoxamine Maleate (Luvox) 75 mg QHS PO Last administered on 08/10/17at 20:14; Start 08/07/17 at 21:00 Memantine (Namenda) 5 mg BID PO Last administered on 08/11/17at 07:46; Start at 21:00 Mirtazapine (Remeron) 15 mg QHS PO Last administered on 08/10/17at 20:15; Start 08/07/17 at 21:00 Trazodone HCl (Desyrel) 50 mg QHS PO Last administered on 08/10/17at 20:14; Start 08/08/17 at 21:00 Active Scripts Active Reported Potassium 99 Mg Tablet 99 Mg PO DAILY Namzaric 7 mg-10 mg Capsule (Memantine HCl/Donepezil HCl) 1 Each Cap.spr.24 1 Each PO DAILY Melatonin 3 Mg Tablet 5 Mg PO HS Saw [place] 500 Mg Capsule 500 Mg PO BID [excedrin pm] 2 Tab HS Excedrin Extra Strength Caplet (Aspirin/Acetaminophen/Caffeine) 1 Each Tablet 2 Each PO Atorvastatin Calcium 20 Mg Tablet 20 Mg PO QHS Venlafaxine Hcl 75 Mg Tablet 150 Mg PO HS Co-Enzyme Q10 100 mg Softgel (Ubidecarenone/Vit E/Vit E Mix) 1 Each Capsule 1 Each PO HS Oxybutynin Chloride 5 Mg Tablet 5 Mg PO BID Meloxicam 15 Mg Tablet 15 Mg PO DAILY Nexium Capsule (Esomeprazole Magnesium) 40 Mg Capsule. 40 Mg PO DAILYAC I have reviewed the current psychotropics carefully including drug interactions. Risk benefit ratio favors no change other than as noted in my dictated progress note. Diagnosis: Problems: (1) Dementia (2) Obsessive compulsive disorder (3) Anxiety disorder (4) Dementia in Alzheimer's disease with delusions (5) Dementia in Alzheimer's disease with depression (6) Dementia, vascular, with delusions (7) Dementia, vascular, with depression (8) Impulse control disorder MARCIAL HINTON MD Aug 11, 2017 20:09
[2017-08-11] MEDS: MIRTAZAPINE 7.5 MG TABLET. PO SCH (20:20)
[2017-08-11] MEDS: traZODone 50 MG TABLET. PO SCH (20:21)
[2017-08-11] MEDS: diphenhydrAMINE HCL 25 MG CAPSULE PO SCH (20:21)
[2017-08-11] MEDS: ACETAMINOPHEN 500 MG TABLET PO SCH (20:21)
[2017-08-11] MEDS: ATORVASTATIN CALCIUM 20 MG TABLET PO SCH (20:21)
[2017-08-11] MEDS: MELATONIN 3 MG TABLET PO SCH (20:22)
[2017-08-12 06:14] VITALS: BP 162/87
[2017-08-12] MEDS: MEMANTINE 5 MG TABLET. PO SCH ×2 (09:19→20:25)
[2017-08-12] MEDS: DONEPEZIL HCL 10 MG TABLET PO SCH (09:19)
[2017-08-12] MEDS: OXYBUTYNIN CHLORIDE 5 MG TABLET PO SCH ×2 (09:19→20:25)
[2017-08-12] MEDS: PANTOPRAZOLE 40 MG TABLET. PO SCH (09:19)
[2017-08-12 16:40] VITALS: BP 130/72
[2017-08-12] MEDS: MELATONIN 3 MG TABLET PO SCH (20:24)
[2017-08-12] MEDS: traZODone 50 MG TABLET. PO SCH (20:24)
[2017-08-12] MEDS: diphenhydrAMINE HCL 25 MG CAPSULE PO SCH (20:24)
[2017-08-12] MEDS: ACETAMINOPHEN 500 MG TABLET PO SCH (20:24)
[2017-08-12] MEDS: MIRTAZAPINE 7.5 MG TABLET. PO SCH (20:25)
[2017-08-12] MEDS: ATORVASTATIN CALCIUM 20 MG TABLET PO SCH (20:25)
[2017-08-13 06:07] VITALS: BP 152/88
[2017-08-13] MEDS: MEMANTINE 5 MG TABLET. PO SCH ×2 (07:53→19:39)
[2017-08-13] MEDS: OXYBUTYNIN CHLORIDE 5 MG TABLET PO SCH ×2 (07:53→19:38)
[2017-08-13] MEDS: PANTOPRAZOLE 40 MG TABLET. PO SCH (07:53)
[2017-08-13] MEDS: DONEPEZIL HCL 10 MG TABLET PO SCH (07:53)
--- NOTE | 2017-08-13 08:24 | PN ---
DATE: 08/10/2017 This late entry 08/10/2017 covers elements not covered in my initial note 08/10/2017. I met with the patient evening of 08/10/2017. The patient remains somewhat forgetful for short term events anxious, obsessive opening and closing the closet door repeatedly, carrying a water cup with him obsessively. We will repeat labs morning of 08/11/2017. Rest of the day, he appeared more relaxed. REVIEW OF SYSTEMS: No CV, , pulmonary, eye system symptoms on review. Reliability poor. MENTAL STATUS EXAM: Oriented to himself and situation. Speech, often responses monosyllabic. Abstraction fair, computation impaired, language function intact, attention span short. Mood and affect less labile, less anxious. LABORATORY DATA: Reviewed. IMPRESSION: Major neurocognitive disorder, early Alzheimer, vascular with depression, delusions, obsessive compulsive disorder. PLAN: Continue current psychotropics mentioned in my initial note. MAN Raysa HINTON MD DR: PRO/alvin JOB#: [id number] / [id number]
--- NOTE | 2017-08-13 10:02 | PDOC ---
Exam Note: Mir Note: Please also refer to the separate dictated note~for this date of service dictated separately.~Patient seen individually. Discussed the patient with Nursing staff reviewed the chart.~Reviewed interim history and current functioning. Reviewed vital signs,~Labs/ Radiology~and current medications noted below. Continue current treatment with the changes noted in the dictated addendum note. This is a late entry for date of service August 12, 2017 Assessment: Vital Signs: VS - Last 72 Hours, by Label Date Time Temp Pulse Resp B/P (MAP) Pulse Ox O2 Delivery O2 Flow Rate FiO2 08/13/17 06:07 98.3 94 18 152/88 (109) 97 08/12/17 16:40 98.9 100 20 130/72 (91) 94 Room Air 08/12/17 06:14 98.5 92 18 162/87 (112) 96 08/11/17 16:09 98.8 105 16 137/78 (97) 95 08/11/17 06:07 98.5 77 18 137/86 (103) 95 08/10/17 16:00 99.2 96 20 133/69 (90) 95 Vital Signs Date Time Temp Pulse Resp B/P (MAP) Pulse Ox O2 Delivery O2 Flow Rate FiO2 08/13/17 06:07 98.3 94 18 152/88 (109) 97 08/12/17 16:40 Room Air I&O Intake and Output 08/13/17 07:00 Intake Total 1920 ml Balance 1920 ml Intake Oral 1920 ml Current Medications: Meds: Current Medications Acetaminophen (Tylenol) 650 mg PRN Q6HRS PRN PO PAIN / TEMP Last administered on 08/10/17at 15:54; Start 08/03/17 at 23:00 Multi-Ingredient Ointment (Analgesic [place]) 1 tamara PRN QID PRN TP MUSCLE PAIN; Start 08/03/17 at 23:00 Al Hydroxide/Mg Hydroxide (Mylanta Plus Xs) 15 ml PRN AFTMEALHC PRN PO DYSPEPSIA; Start 08/03/17 at 23:00 Magnesium Hydroxide (Milk Of Magnesia) 2,400 mg PRN QHS PRN PO CONSTIPATION; Start 08/03/17 at 23:00 Meloxicam (Mobic) 15 mg DAILY PO Last administered on 08/04/17at 07:44; Start at 09:00; Stop 08/04/17 at 18:53; Status DC Venlafaxine HCl (Effexor) 150 mg HS PO Last administered on 08/04/17at 20:48; Start 08/04/17 at 21:00; Stop 08/05/17 at 19:31; Status DC Melatonin 6 mg QHS PO Last administered on 08/12/17at 20:24; Start 08/04/17 at 21:00 Olanzapine (ZyPREXA ZYDIS) 2.5 mg PRN Q2HR PRN PO ANXIETY / AGITATION; Start at 23:30 Donepezil HCl (Aricept) 10 mg DAILY PO Last administered on 08/13/17at 07:53; Start 08/04/17 at 09:00 Acetaminophen/ Aspirin/Caffeine (Excedrin Migraine) 2 tab HS PO ; Start at 21:00; Status Cancel Atorvastatin Calcium (Lipitor) 20 mg QHS PO Last administered on 08/12/17at 20: 25; Start 08/04/17 at 21:00 Oxybutynin Chloride (Ditropan) 5 mg BID PO Last administered on 08/13/17at 07:53 ; Start 08/04/17 at 09:00 Pantoprazole Sodium (Protonix) 40 mg DAILYAC PO Last administered on 08/13/17at 07:53; Start 08/04/17 at 07:30 Non-Formulary Medication 99 mg DAILY PO ; Start 08/04/17 at 09:00; Status UNV Non-Formulary Medication 500 mg BID PO ; Start 08/04/17 at 09:00; Status UNV Non-Formulary Medication 1 each HS PO ; Start 08/04/17 at 21:00; Status UNV Non-Formulary Medication 2 tab HS .ROUTE ; Start 08/04/17 at 21:00; Stop at 07:23; Status DC Memantine (Namenda) 5 mg DAILY PO Last administered on 08/07/17at 08:13; Start 08/04/17 at 09:00; Stop 08/07/17 at 19:03; Status DC Vitamin D (Vitamin D3) 50,000 unit WEEKLY PO Last administered on 08/11/17at 07: 46; Start 08/04/17 at 19:30 Acetaminophen (Tylenol) 1,000 mg QHS PO Last administered on 08/12/17at 20:24; Start 08/05/17 at 21:00 Diphenhydramine HCl (Benadryl) 50 mg QHS PO Last administered on 08/12/17at 20: 24; Start 08/05/17 at 21:00 Fluvoxamine Maleate (Luvox) 50 mg QHS PO Last administered on 08/06/17at 19:20; Start 08/05/17 at 21:00; Stop 08/07/17 at 19:03; Status DC Mirtazapine (Remeron) 7.5 mg QHS PO Last administered on 08/06/17at 19:19; Start 08/05/17 at 21:00; Stop 08/07/17 at 19:03; Status DC Trazodone HCl (Desyrel) 50 mg PRN QHS PRN PO INSOMNIA, MAY REPEAT X1 Last administered on 08/07/17at 19:36; Start 08/05/17 at 19:30; Stop 08/08/17 at 18:11 ; Status DC Fluvoxamine Maleate (Luvox) 75 mg QHS PO Last administered on 08/12/17at 20:24; Start 08/07/17 at 21:00 Memantine (Namenda) 5 mg BID PO Last administered on 08/13/17at 07:53; Start at 21:00 Mirtazapine (Remeron) 15 mg QHS PO Last administered on 08/12/17at 20:25; Start 08/07/17 at 21:00 Trazodone HCl (Desyrel) 50 mg QHS PO Last administered on 08/12/17at 20:24; Start 08/08/17 at 21:00 Artificial Tears (Refresh [place]) 1 drop PRN Q15MIN PRN OU DRY EYE; Start at 16:45 Active Scripts Active Reported Potassium 99 Mg Tablet 99 Mg PO DAILY Namzaric 7 mg-10 mg Capsule (Memantine HCl/Donepezil HCl) 1 Each Cap.spr.24 1 Each PO DAILY Melatonin 3 Mg Tablet 5 Mg PO HS Saw [place] 500 Mg Capsule 500 Mg PO BID [excedrin pm] 2 Tab HS Excedrin Extra Strength Caplet (Aspirin/Acetaminophen/Caffeine) 1 Each Tablet 2 Each PO Atorvastatin Calcium 20 Mg Tablet 20 Mg PO QHS Venlafaxine Hcl 75 Mg Tablet 150 Mg PO HS Co-Enzyme Q10 100 mg Softgel (Ubidecarenone/Vit E/Vit E Mix) 1 Each Capsule 1 Each PO HS Oxybutynin Chloride 5 Mg Tablet 5 Mg PO BID Meloxicam 15 Mg Tablet 15 Mg PO DAILY Nexium Capsule (Esomeprazole Magnesium) 40 Mg Capsule.dr 40 Mg PO DAILYAC I have reviewed the current psychotropics carefully including drug interactions. Risk benefit ratio favors no change other than as noted in my dictated progress note. Diagnosis: Problems: (1) Dementia (2) Obsessive compulsive disorder (3) Medical clearance for psychiatric admission (4) Anxiety disorder (5) Dementia in Alzheimer's disease with delusions (6) Dementia in Alzheimer's disease with depression (7) Dementia, vascular, with delusions (8) Dementia, vascular, with depression (9) Impulse control disorder MARCIAL HINTON MD Aug 13, 2017 10:02
--- NOTE | 2017-08-13 10:19 | PN ---
DATE: 08/11/2017 PSYCHIATRIC PROGRESS NOTE This late entry 08/11/2017 covers elements not covered in my initial note 08/11/2017. SUBJECTIVE: The patient was seen individually evening of 08/11/2017, staffed after treatment team meeting with the entire team morning of 08/11/2017. Reviewed his history at the treatment team meeting progress diagnosis, discharge plans. Appetite 90%, sleeping about 6-1/2 hours, quite obsessive about dental flossing, but even this is better since his hospitalization. He is coming out a little more animated, less anxious, paranoid, still opening and closing the door of his closet repeatedly whenever he can, but less so than before. REVIEW OF SYSTEMS: No CV, , pulmonary, eye, ENT system symptoms on review. Reliability is poor. MENTAL STATUS EXAM: Oriented to himself and situation. Speech coherent, abstraction fair, computation impaired, language function intact, attention span short. Mood and affect somewhat withdrawn, but better than before. LABORATORY DATA: Reviewed. IMPRESSION: Major neurocognitive disorder, Alzheimer, vascular with depression, delusion latter in partial remission. PLAN: Continue current psychotropics mentioned in my initial note. MAN Raysa HINTON MD DR: PRO/alvin JOB#: [id number] / [id number]
[2017-08-13 16:22] VITALS: BP 134/85
[2017-08-13] MEDS: diphenhydrAMINE HCL 25 MG CAPSULE PO SCH (19:38)
[2017-08-13] MEDS: traZODone 50 MG TABLET. PO SCH (19:38)
[2017-08-13] MEDS: MELATONIN 3 MG TABLET PO SCH (19:38)
[2017-08-13] MEDS: ACETAMINOPHEN 500 MG TABLET PO SCH (19:38)
[2017-08-13] MEDS: MIRTAZAPINE 7.5 MG TABLET. PO SCH (19:39)
[2017-08-13] MEDS: ATORVASTATIN CALCIUM 20 MG TABLET PO SCH (19:39)
--- NOTE | 2017-08-13 22:29 | PDOC ---
Exam Note: Mir Note: Please also refer to the separate dictated note~for this date of service dictated separately.~Patient seen individually. Discussed the patient with Nursing staff reviewed the chart.~Reviewed interim history and current functioning. Reviewed vital signs,~Labs/ Radiology~and current medications noted below. Continue current treatment with the changes noted in the dictated addendum note Assessment: Vital Signs: Vital Signs Date Time Temp Pulse Resp B/P (MAP) Pulse Ox O2 Delivery O2 Flow Rate FiO2 08/13/17 16:22 97.4 99 20 134/85 (101) 93 08/12/17 16:40 Room Air I&O Intake and Output 08/13/17 07:00 Intake Total 1920 ml Balance 1920 ml Intake Oral 1920 ml Current Medications: Meds: Current Medications Acetaminophen (Tylenol) 650 mg PRN Q6HRS PRN PO PAIN / TEMP Last administered on 08/10/17at 15:54; Start 08/03/17 at 23:00 Multi-Ingredient Ointment (Analgesic [place]) 1 tamara PRN QID PRN TP MUSCLE PAIN; Start 08/03/17 at 23:00 Al Hydroxide/Mg Hydroxide (Mylanta Plus Xs) 15 ml PRN AFTMEALHC PRN PO DYSPEPSIA; Start 08/03/17 at 23:00 Magnesium Hydroxide (Milk Of Magnesia) 2,400 mg PRN QHS PRN PO CONSTIPATION; Start 08/03/17 at 23:00 Meloxicam (Mobic) 15 mg DAILY PO Last administered on 08/04/17at 07:44; Start at 09:00; Stop 08/04/17 at 18:53; Status DC Venlafaxine HCl (Effexor) 150 mg HS PO Last administered on 08/04/17at 20:48; Start 08/04/17 at 21:00; Stop 08/05/17 at 19:31; Status DC Melatonin 6 mg QHS PO Last administered on 08/13/17at 19:38; Start 08/04/17 at 21:00 Olanzapine (ZyPREXA ZYDIS) 2.5 mg PRN Q2HR PRN PO ANXIETY / AGITATION; Start at 23:30 Donepezil HCl (Aricept) 10 mg DAILY PO Last administered on 08/13/17at 07:53; Start 08/04/17 at 09:00 Acetaminophen/ Aspirin/Caffeine (Excedrin Migraine) 2 tab HS PO ; Start at 21:00; Status Cancel Atorvastatin Calcium (Lipitor) 20 mg QHS PO Last administered on 08/13/17at 19: 39; Start 08/04/17 at 21:00 Oxybutynin Chloride (Ditropan) 5 mg BID PO Last administered on 08/13/17at 19:38 ; Start 08/04/17 at 09:00 Pantoprazole Sodium (Protonix) 40 mg DAILYAC PO Last administered on 08/13/17at 07:53; Start 08/04/17 at 07:30 Non-Formulary Medication 99 mg DAILY PO ; Start 08/04/17 at 09:00; Status UNV Non-Formulary Medication 500 mg BID PO ; Start 08/04/17 at 09:00; Status UNV Non-Formulary Medication 1 each HS PO ; Start 08/04/17 at 21:00; Status UNV Non-Formulary Medication 2 tab HS .ROUTE ; Start 08/04/17 at 21:00; Stop at 07:23; Status DC Memantine (Namenda) 5 mg DAILY PO Last administered on 08/07/17at 08:13; Start 08/04/17 at 09:00; Stop 08/07/17 at 19:03; Status DC Vitamin D (Vitamin D3) 50,000 unit WEEKLY PO Last administered on 08/11/17at 07: 46; Start 08/04/17 at 19:30 Acetaminophen (Tylenol) 1,000 mg QHS PO Last administered on 08/13/17at 19:38; Start 08/05/17 at 21:00 Diphenhydramine HCl (Benadryl) 50 mg QHS PO Last administered on 08/13/17at 19: 38; Start 08/05/17 at 21:00 Fluvoxamine Maleate (Luvox) 50 mg QHS PO Last administered on 08/06/17at 19:20; Start 08/05/17 at 21:00; Stop 08/07/17 at 19:03; Status DC Mirtazapine (Remeron) 7.5 mg QHS PO Last administered on 08/06/17at 19:19; Start 08/05/17 at 21:00; Stop 08/07/17 at 19:03; Status DC Trazodone HCl (Desyrel) 50 mg PRN QHS PRN PO INSOMNIA, MAY REPEAT X1 Last administered on 08/07/17at 19:36; Start 08/05/17 at 19:30; Stop 08/08/17 at 18:11 ; Status DC Fluvoxamine Maleate (Luvox) 75 mg QHS PO Last administered on 08/12/17at 20:24; Start 08/07/17 at 21:00; Stop 08/13/17 at 19:35; Status DC Memantine (Namenda) 5 mg BID PO Last administered on 08/13/17at 19:39; Start at 21:00 Mirtazapine (Remeron) 15 mg QHS PO Last administered on 08/13/17at 19:39; Start 08/07/17 at 21:00 Trazodone HCl (Desyrel) 50 mg QHS PO Last administered on 08/13/17at 19:38; Start 08/08/17 at 21:00 Artificial Tears (Refresh Classic) 1 drop PRN Q15MIN PRN OU DRY EYE; Start at 16:45 Fluvoxamine Maleate (Luvox) 100 mg QHS PO Last administered on 08/13/17at 19:54 ; Start 08/13/17 at 21:00 Active Scripts Active Reported Potassium 99 Mg Tablet 99 Mg PO DAILY Namzaric 7 mg-10 mg Capsule (Memantine HCl/Donepezil HCl) 1 Each Cap.spr.24 1 Each PO DAILY Melatonin 3 Mg Tablet 5 Mg PO HS Saw [place] 500 Mg Capsule 500 Mg PO BID [excedrin pm] 2 Tab HS Excedrin Extra Strength Caplet (Aspirin/Acetaminophen/Caffeine) 1 Each Tablet 2 Each PO Atorvastatin Calcium 20 Mg Tablet 20 Mg PO QHS Venlafaxine Hcl 75 Mg Tablet 150 Mg PO HS Co-Enzyme Q10 100 mg Softgel (Ubidecarenone/Vit E/Vit E Mix) 1 Each Capsule 1 Each PO HS Oxybutynin Chloride 5 Mg Tablet 5 Mg PO BID Meloxicam 15 Mg Tablet 15 Mg PO DAILY Nexium Capsule (Esomeprazole Magnesium) 40 Mg Capsule.dr 40 Mg PO DAILYAC I have reviewed the current psychotropics carefully including drug interactions. Risk benefit ratio favors no change other than as noted in my dictated progress note. Diagnosis: Problems: (1) Dementia (2) Obsessive compulsive disorder (3) Medical clearance for psychiatric admission (4) Anxiety disorder (5) Dementia in Alzheimer's disease with delusions (6) Dementia in Alzheimer's disease with depression (7) Dementia, vascular, with delusions (8) Dementia, vascular, with depression (9) Impulse control disorder MARCIAL HINTON MD Aug 13, 2017 22:29
[2017-08-14 06:36] VITALS: BP 162/84
[2017-08-14] MEDS: MEMANTINE 5 MG TABLET. PO SCH ×2 (07:57→19:51)
[2017-08-14] MEDS: PANTOPRAZOLE 40 MG TABLET. PO SCH (07:57)
[2017-08-14] MEDS: DONEPEZIL HCL 10 MG TABLET PO SCH (07:57)
[2017-08-14] MEDS: OXYBUTYNIN CHLORIDE 5 MG TABLET PO SCH ×2 (07:57→19:51)
[2017-08-14 16:25] VITALS: BP 133/78
[2017-08-14] MEDS: MIRTAZAPINE 7.5 MG TABLET. PO SCH (19:50)
[2017-08-14] MEDS: ACETAMINOPHEN 500 MG TABLET PO SCH (19:51)
[2017-08-14] MEDS: diphenhydrAMINE HCL 25 MG CAPSULE PO SCH (19:51)
[2017-08-14] MEDS: traZODone 50 MG TABLET. PO SCH ×2 (19:51→22:00)
[2017-08-14] MEDS: MELATONIN 3 MG TABLET PO SCH (19:51)
[2017-08-14] MEDS: ATORVASTATIN CALCIUM 20 MG TABLET PO SCH (19:51)
--- NOTE | 2017-08-14 20:21 | PDOC ---
Exam Note: Mir Note: Please also refer to the separate dictated note~for this date of service dictated separately.~Patient seen individually. Discussed the patient with Nursing staff reviewed the chart.~Reviewed interim history and current functioning. Reviewed vital signs,~Labs/ Radiology~and current medications noted below. Continue current treatment with the changes noted in the dictated addendum note Assessment: Vital Signs: Vital Signs Date Time Temp Pulse Resp B/P (MAP) Pulse Ox O2 Delivery O2 Flow Rate FiO2 08/14/17 16:25 97.9 99 20 133/78 (96) 94 Room Air I&O Intake and Output 08/14/17 07:00 Intake Total 1560 ml Balance 1560 ml Intake Oral 1560 ml Current Medications: Meds: Current Medications Acetaminophen (Tylenol) 650 mg PRN Q6HRS PRN PO PAIN / TEMP Last administered on 08/10/17at 15:54; Start 08/03/17 at 23:00 Multi-Ingredient Ointment (Analgesic [place]) 1 tamara PRN QID PRN TP MUSCLE PAIN; Start 08/03/17 at 23:00 Al Hydroxide/Mg Hydroxide (Mylanta Plus Xs) 15 ml PRN AFTMEALHC PRN PO DYSPEPSIA; Start 08/03/17 at 23:00 Magnesium Hydroxide (Milk Of Magnesia) 2,400 mg PRN QHS PRN PO CONSTIPATION; Start 08/03/17 at 23:00 Meloxicam (Mobic) 15 mg DAILY PO Last administered on 08/04/17at 07:44; Start at 09:00; Stop 08/04/17 at 18:53; Status DC Venlafaxine HCl (Effexor) 150 mg HS PO Last administered on 08/04/17at 20:48; Start 08/04/17 at 21:00; Stop 08/05/17 at 19:31; Status DC Melatonin 6 mg QHS PO Last administered on 08/14/17at 19:51; Start 08/04/17 at 21:00 Olanzapine (ZyPREXA ZYDIS) 2.5 mg PRN Q2HR PRN PO ANXIETY / AGITATION Last administered on 08/14/17at 03:49; Start 08/03/17 at 23:30 Donepezil HCl (Aricept) 10 mg DAILY PO Last administered on 08/14/17at 07:57; Start 08/04/17 at 09:00 Acetaminophen/ Aspirin/Caffeine (Excedrin Migraine) 2 tab HS PO ; Start at 21:00; Status Cancel Atorvastatin Calcium (Lipitor) 20 mg QHS PO Last administered on 08/14/17at 19: 51; Start 08/04/17 at 21:00 Oxybutynin Chloride (Ditropan) 5 mg BID PO Last administered on 08/14/17at 19:51 ; Start 08/04/17 at 09:00 Pantoprazole Sodium (Protonix) 40 mg DAILYAC PO Last administered on 08/14/17at 07:57; Start 08/04/17 at 07:30 Non-Formulary Medication 99 mg DAILY PO ; Start 08/04/17 at 09:00; Status UNV Non-Formulary Medication 500 mg BID PO ; Start 08/04/17 at 09:00; Status UNV Non-Formulary Medication 1 each HS PO ; Start 08/04/17 at 21:00; Status UNV Non-Formulary Medication 2 tab HS .ROUTE ; Start 08/04/17 at 21:00; Stop at 07:23; Status DC Memantine (Namenda) 5 mg DAILY PO Last administered on 08/07/17at 08:13; Start 08/04/17 at 09:00; Stop 08/07/17 at 19:03; Status DC Vitamin D (Vitamin D3) 50,000 unit WEEKLY PO Last administered on 08/11/17at 07: 46; Start 08/04/17 at 19:30 Acetaminophen (Tylenol) 1,000 mg QHS PO Last administered on 08/14/17at 19:51; Start 08/05/17 at 21:00 Diphenhydramine HCl (Benadryl) 50 mg QHS PO Last administered on 08/14/17at 19: 51; Start 08/05/17 at 21:00 Fluvoxamine Maleate (Luvox) 50 mg QHS PO Last administered on 08/06/17at 19:20; Start 08/05/17 at 21:00; Stop 08/07/17 at 19:03; Status DC Mirtazapine (Remeron) 7.5 mg QHS PO Last administered on 08/06/17at 19:19; Start 08/05/17 at 21:00; Stop 08/07/17 at 19:03; Status DC Trazodone HCl (Desyrel) 50 mg PRN QHS PRN PO INSOMNIA, MAY REPEAT X1 Last administered on 08/07/17at 19:36; Start 08/05/17 at 19:30; Stop 08/08/17 at 18:11 ; Status DC Fluvoxamine Maleate (Luvox) 75 mg QHS PO Last administered on 08/12/17at 20:24; Start 08/07/17 at 21:00; Stop 08/13/17 at 19:35; Status DC Memantine (Namenda) 5 mg BID PO Last administered on 08/14/17at 19:51; Start at 21:00 Mirtazapine (Remeron) 15 mg QHS PO Last administered on 08/14/17at 19:50; Start 08/07/17 at 21:00 Trazodone HCl (Desyrel) 50 mg QHS PO Last administered on 08/14/17at 19:51; Start 08/08/17 at 21:00 Artificial Tears (Refresh Classic) 1 drop PRN Q15MIN PRN OU DRY EYE; Start at 16:45 Fluvoxamine Maleate (Luvox) 100 mg QHS PO Last administered on 08/14/17at 19:51 ; Start 08/13/17 at 21:00 Active Scripts Active Reported Potassium 99 Mg Tablet 99 Mg PO DAILY Namzaric 7 mg-10 mg Capsule (Memantine HCl/Donepezil HCl) 1 Each Cap.spr.24 1 Each PO DAILY Melatonin 3 Mg Tablet 5 Mg PO HS Saw [place] 500 Mg Capsule 500 Mg PO BID [excedrin pm] 2 Tab HS Excedrin Extra Strength Caplet (Aspirin/Acetaminophen/Caffeine) 1 Each Tablet 2 Each PO Atorvastatin Calcium 20 Mg Tablet 20 Mg PO QHS Venlafaxine Hcl 75 Mg Tablet 150 Mg PO HS Co-Enzyme Q10 100 mg Softgel (Ubidecarenone/Vit E/Vit E Mix) 1 Each Capsule 1 Each PO HS Oxybutynin Chloride 5 Mg Tablet 5 Mg PO BID Meloxicam 15 Mg Tablet 15 Mg PO DAILY Nexium Capsule (Esomeprazole Magnesium) 40 Mg Capsule.dr 40 Mg PO DAILYAC I have reviewed the current psychotropics carefully including drug interactions. Risk benefit ratio favors no change other than as noted in my dictated progress note. Diagnosis: Problems: (1) Dementia (2) Obsessive compulsive disorder (3) Medical clearance for psychiatric admission (4) Anxiety disorder (5) Dementia in Alzheimer's disease with delusions (6) Dementia in Alzheimer's disease with depression (7) Dementia, vascular, with delusions (8) Dementia, vascular, with depression (9) Impulse control disorder MARCIAL HINTON MD Aug 14, 2017 20:21
--- NOTE | 2017-08-14 21:02 | PN ---
DATE: 08/12/2017 This late entry 08/12/2017 covers elements not covered in my initial note 08/12/2017. I met with the patient evening of 08/12/2017. Overall, the patient remains somewhat obsessive, repetitive, short term memory deficits is evident. REVIEW OF SYSTEMS: No CV, , pulmonary, eye, ENT system symptoms on review. Reliability poor. MENTAL STATUS EXAM: Oriented to himself. Insight, judgment, recent and remote memory, attention, concentration, fund of knowledge poor, consistent with his diagnosis mentioned in my initial note. IMPRESSION: Major neurocognitive disorder, Alzheimer, vascular with depression, delusion, behavioral disturbance. Rest unchanged. PLAN: Continue current psychotropics. Adjust further as clinically indicated. MAN Raysa HINTON MD DR: PRO/alvin JOB#: [id number] / [id number]
--- NOTE | 2017-08-14 23:36 | PN ---
DATE: 08/13/2017 This is a late entry, covers the elements not covered in my initial note, 08/13/2017. SUBJECTIVE: I met with the patient evening of 08/13/2017. The patient remains confused, quite obsessive, repetitive, slept 5-3/4 quarter hours previous evening. REVIEW OF SYSTEMS: No CV, , pulmonary, eye, ENT system symptoms on review. Reliability poor. MENTAL STATUS EXAM: Oriented to himself and situation. Speech coherent, has some latency. Abstraction fair, computation impaired, repetitively doing the same thing over and over, as I met with him. No suicidal or homicidal ideation. IMPRESSION: Major neurocognitive disorder, Alzheimer, vascular with depression, delusion, behavioral disturbance, obsessive compulsion disorder. PLAN: Starting 08/14/2017, increase Luvox to 100 mg a day. Continue rest unchanged. MAN Raysa HINTON MD DR: PRO/alvin JOB#: [id number] / [id number]
[2017-08-15 06:10] VITALS: BP 163/85
[2017-08-15] MEDS: PANTOPRAZOLE 40 MG TABLET. PO SCH (08:36)
[2017-08-15] MEDS: MEMANTINE 5 MG TABLET. PO SCH ×2 (08:39→20:10)
[2017-08-15] MEDS: OXYBUTYNIN CHLORIDE 5 MG TABLET PO SCH ×2 (08:39→20:09)
[2017-08-15] MEDS: DONEPEZIL HCL 10 MG TABLET PO SCH (08:39)
[2017-08-15 16:07] VITALS: BP 128/81
[2017-08-15] MEDS: diphenhydrAMINE HCL 25 MG CAPSULE PO SCH (20:09)
[2017-08-15] MEDS: ACETAMINOPHEN 500 MG TABLET PO SCH (20:09)
[2017-08-15] MEDS: MELATONIN 3 MG TABLET PO SCH (20:09)
[2017-08-15] MEDS: MIRTAZAPINE 7.5 MG TABLET. PO SCH (20:10)
[2017-08-15] MEDS: ATORVASTATIN CALCIUM 20 MG TABLET PO SCH (20:10)
[2017-08-15] MEDS: traZODone 50 MG TABLET. PO SCH (20:11)
--- NOTE | 2017-08-15 20:14 | PDOC ---
Exam Note: Mir Note: Please also refer to the separate dictated note~for this date of service dictated separately.~Patient seen individually. Discussed the patient with Nursing staff reviewed the chart.~Reviewed interim history and current functioning. Reviewed vital signs,~Labs/ Radiology~and current medications noted below. Continue current treatment with the changes noted in the dictated addendum note Assessment: Vital Signs: Vital Signs Date Time Temp Pulse Resp B/P (MAP) Pulse Ox O2 Delivery O2 Flow Rate FiO2 08/15/17 16:07 98.2 87 16 128/81 (97) 97 08/14/17 16:25 Room Air I&O Intake and Output 08/15/17 07:00 Intake Total 1440 ml Balance 1440 ml Intake Oral 1440 ml # Voids 1 Current Medications: Meds: Current Medications Acetaminophen (Tylenol) 650 mg PRN Q6HRS PRN PO PAIN / TEMP Last administered on 08/10/17at 15:54; Start 08/03/17 at 23:00 Multi-Ingredient Ointment (Analgesic [place]) 1 tamara PRN QID PRN TP MUSCLE PAIN; Start 08/03/17 at 23:00 Al Hydroxide/Mg Hydroxide (Mylanta Plus Xs) 15 ml PRN AFTMEALHC PRN PO DYSPEPSIA; Start 08/03/17 at 23:00 Magnesium Hydroxide (Milk Of Magnesia) 2,400 mg PRN QHS PRN PO CONSTIPATION; Start 08/03/17 at 23:00 Meloxicam (Mobic) 15 mg DAILY PO Last administered on 08/04/17at 07:44; Start at 09:00; Stop 08/04/17 at 18:53; Status DC Venlafaxine HCl (Effexor) 150 mg HS PO Last administered on 08/04/17at 20:48; Start 08/04/17 at 21:00; Stop 08/05/17 at 19:31; Status DC Melatonin 6 mg QHS PO Last administered on 08/15/17at 20:09; Start 08/04/17 at 21:00 Olanzapine (ZyPREXA ZYDIS) 2.5 mg PRN Q2HR PRN PO ANXIETY / AGITATION Last administered on 08/14/17at 20:50; Start 08/03/17 at 23:30 Donepezil HCl (Aricept) 10 mg DAILY PO Last administered on 08/15/17at 08:39; Start 08/04/17 at 09:00 Acetaminophen/ Aspirin/Caffeine (Excedrin Migraine) 2 tab HS PO ; Start at 21:00; Status Cancel Atorvastatin Calcium (Lipitor) 20 mg QHS PO Last administered on 08/15/17at 20: 10; Start 08/04/17 at 21:00 Oxybutynin Chloride (Ditropan) 5 mg BID PO Last administered on 08/15/17at 20:09 ; Start 08/04/17 at 09:00 Pantoprazole Sodium (Protonix) 40 mg DAILYAC PO Last administered on 08/15/17 08:36; Start 08/04/17 at 07:30 Non-Formulary Medication 99 mg DAILY PO ; Start 08/04/17 at 09:00; Status UNV Non-Formulary Medication 500 mg BID PO ; Start 08/04/17 at 09:00; Status UNV Non-Formulary Medication 1 each HS PO ; Start 08/04/17 at 21:00; Status UNV Non-Formulary Medication 2 tab HS .ROUTE ; Start 08/04/17 at 21:00; Stop at 07:23; Status DC Memantine (Namenda) 5 mg DAILY PO Last administered on 08/07/17at 08:13; Start 08/04/17 at 09:00; Stop 08/07/17 at 19:03; Status DC Vitamin D (Vitamin D3) 50,000 unit WEEKLY PO Last administered on 08/11/17at 07: 46; Start 08/04/17 at 19:30 Acetaminophen (Tylenol) 1,000 mg QHS PO Last administered on 08/15/17at 20:09; Start 08/05/17 at 21:00 Diphenhydramine HCl (Benadryl) 50 mg QHS PO Last administered on 08/15/17 20: 09; Start 08/05/17 at 21:00 Fluvoxamine Maleate (Luvox) 50 mg QHS PO Last administered on 08/06/17at 19:20; Start 08/05/17 at 21:00; Stop 08/07/17 at 19:03; Status DC Mirtazapine (Remeron) 7.5 mg QHS PO Last administered on 1/20/18at 19:19; Start 08/05/17 at 21:00; Stop 08/07/17 at 19:03; Status DC Trazodone HCl (Desyrel) 50 mg PRN QHS PRN PO INSOMNIA, MAY REPEAT X1 Last administered on 08/07/17at 19:36; Start 08/05/17 at 19:30; Stop 08/08/17 at 18:11 ; Status DC Fluvoxamine Maleate (Luvox) 75 mg QHS PO Last administered on 08/12/17at 20:24; Start 08/07/17 at 21:00; Stop 08/13/17 at 19:35; Status DC Memantine (Namenda) 5 mg BID PO Last administered on 08/15/17at 20:10; Start at 21:00 Mirtazapine (Remeron) 15 mg QHS PO Last administered on 08/15/17at 20:10; Start 08/07/17 at 21:00 Trazodone HCl (Desyrel) 50 mg QHS PO Last administered on 08/15/17at 20:11; Start 08/08/17 at 21:00 Artificial Tears (Refresh Classic) 1 drop PRN Q15MIN PRN OU DRY EYE; Start at 16:45 Fluvoxamine Maleate (Luvox) 100 mg QHS PO Last administered on 08/15/17at 20:10 ; Start 08/13/17 at 21:00 Active Scripts Active Reported Potassium 99 Mg Tablet 99 Mg PO DAILY Namzaric 7 mg-10 mg Capsule (Memantine HCl/Donepezil HCl) 1 Each Cap.spr.24 1 Each PO DAILY Melatonin 3 Mg Tablet 5 Mg PO HS Saw [place] 500 Mg Capsule 500 Mg PO BID [excedrin pm] 2 Tab HS Excedrin Extra Strength Caplet (Aspirin/Acetaminophen/Caffeine) 1 Each Tablet 2 Each PO Atorvastatin Calcium 20 Mg Tablet 20 Mg PO QHS Venlafaxine Hcl 75 Mg Tablet 150 Mg PO HS Co-Enzyme Q10 100 mg Softgel (Ubidecarenone/Vit E/Vit E Mix) 1 Each Capsule 1 Each PO HS Oxybutynin Chloride 5 Mg Tablet 5 Mg PO BID Meloxicam 15 Mg Tablet 15 Mg PO DAILY Nexium Capsule (Esomeprazole Magnesium) 40 Mg Capsule.dr 40 Mg PO DAILYAC I have reviewed the current psychotropics carefully including drug interactions. Risk benefit ratio favors no change other than as noted in my dictated progress note. Diagnosis: Problems: (1) Dementia (2) Obsessive compulsive disorder (3) Anxiety disorder (4) Dementia in Alzheimer's disease with delusions (5) Dementia in Alzheimer's disease with depression (6) Dementia, vascular, with delusions (7) Dementia, vascular, with depression (8) Impulse control disorder MARCIAL HINTON MD Aug 15, 2017 20:14
[2017-08-16 06:22] VITALS: BP 154/92
[2017-08-16] MEDS: PANTOPRAZOLE 40 MG TABLET. PO SCH (07:39)
[2017-08-16] MEDS: MEMANTINE 5 MG TABLET. PO SCH ×2 (09:33→20:07)
[2017-08-16] MEDS: DONEPEZIL HCL 10 MG TABLET PO SCH (09:33)
[2017-08-16] MEDS: OXYBUTYNIN CHLORIDE 5 MG TABLET PO SCH ×2 (09:33→20:06)
[2017-08-16] MEDS: POLYVINYL ALCOHOL/POVIDONE/PF OPHTH SOLUTION DROPERETTE. OU PRN (14:15)
[2017-08-16 16:06] VITALS: BP 175/76
--- NOTE | 2017-08-16 16:40 | PN ---
DATE: 08/15/2017 SUBJECTIVE: The patient was seen today, met with the staff, chart reviewed. The patient apparently experiencing increased confusion, wandering, stripping his clothes, wanting to go home, episodes of confusion. The patient states he worked for [employer] in [employer] until 2012 then started having severe memory problems. The patient at this time is unable to give much information, not able to say whether he had any issues with alcohol and substance abuse in the past. The patient is known to have severe OCD symptoms. OBSERVATION: VITAL SIGNS: Temperature 98, blood pressure 163/85, pulse 77, respiration 18, O2 sat 96%. Slept about 5 hours last night. The patient's appetite is fair. CURRENT MEDICATIONS: Include Zoloft 100 mg at night, trazodone 50 mg at night, mirtazapine 15 mg at night and Namenda 5 mg b.i.d. The patient is also on melatonin 6 mg at night, Aricept 10 mg at night, olanzapine 2.5 mg q.2 hours p.r.n. The patient is not having any side effects. LABORATORY DATA: Reviewed. The patient's urine drug screen was negative for drugs. The patient's triglycerides elevated. Glucose level was 119. Sodium was 146. ASSESSMENT: Major neurocognitive disorder, Alzheimer's, vascular with depression and delusions and behavioral disturbances and also obsessive-compulsive disorder. PLAN: To continue with the treatment. FABIOLA GIVENS MD DR: DIAN/alvin JOB#: [id number] / [id number]
[2017-08-16] MEDS: MELATONIN 3 MG TABLET PO SCH (20:05)
[2017-08-16] MEDS: traZODone 50 MG TABLET. PO SCH (20:06)
[2017-08-16] MEDS: ACETAMINOPHEN 500 MG TABLET PO SCH (20:06)
[2017-08-16] MEDS: diphenhydrAMINE HCL 25 MG CAPSULE PO SCH (20:06)
[2017-08-16] MEDS: MIRTAZAPINE 7.5 MG TABLET. PO SCH (20:07)
[2017-08-16] MEDS: ATORVASTATIN CALCIUM 20 MG TABLET PO SCH (20:07)
[2017-08-17 06:09] VITALS: BP 156/91
[2017-08-17] MEDS: OXYBUTYNIN CHLORIDE 5 MG TABLET PO SCH ×2 (08:08→19:41)
[2017-08-17] MEDS: MEMANTINE 5 MG TABLET. PO SCH ×2 (08:08→19:42)
[2017-08-17] MEDS: PANTOPRAZOLE 40 MG TABLET. PO SCH (08:09)
[2017-08-17] MEDS: DONEPEZIL HCL 10 MG TABLET PO SCH (08:09)
[2017-08-17] MEDS: POLYVINYL ALCOHOL/POVIDONE/PF OPHTH SOLUTION DROPERETTE. OU PRN ×2 (10:54→19:48)
[2017-08-17 16:14] VITALS: BP 124/88
--- NOTE | 2017-08-17 17:29 | PN ---
DATE: 08/16/2017 SUBJECTIVE: The patient was seen today, and met with the staff, chart reviewed. The patient continues to exhibit obsessive compulsive behaviors, increased confusion. The patient has to be constantly supervised. The patient is having difficulty dealing with the people around him, staff, and somewhat isolative, high level of anxiety. OBSERVATION: VITAL SIGNS: Temperature 97.6, with blood pressure 154/92, pulse 86, respirations 20, O2 sat 94%. Slept about 5 hours last night. CURRENT MEDICATIONS: Include Zoloft 100 mg at night, trazodone 50 mg at night, mirtazapine 15 mg at night and Namenda 5 mg b.i.d., melatonin 6 mg at night, Aricept 10 mg at night, olanzapine 2.5 mg q 2 hours p.r.n. The patient's labs reviewed. IMPRESSION: Major neurocognitive disorder, Alzheimer's, vascular with depression and delusions and behavioral disturbances, obsessive compulsive disorder. PLAN: To continue with the treatment. FABIOLA GIVENS MD DR: DIAN/alvin JOB#: [id number] / [id number]
[2017-08-17] MEDS: diphenhydrAMINE HCL 25 MG CAPSULE PO SCH (19:40)
[2017-08-17] MEDS: MELATONIN 3 MG TABLET PO SCH (19:40)
[2017-08-17] MEDS: traZODone 50 MG TABLET. PO SCH (19:41)
[2017-08-17] MEDS: ACETAMINOPHEN 500 MG TABLET PO SCH (19:41)
[2017-08-17] MEDS: MIRTAZAPINE 7.5 MG TABLET. PO SCH (19:42)
[2017-08-17] MEDS: ATORVASTATIN CALCIUM 20 MG TABLET PO SCH (19:42)
[2017-08-18 06:19] VITALS: BP 146/81
[2017-08-18 07:27] LABS: BASO # 0.1 x10^3/uL (0.0-0.2); BASO % 1 % (0-3); EOS # 0.2 x10^3/uL (0.0-0.7); EOS % 2 % (0-3); HEMATOCRIT 43.3 % (39.0-53.0); HEMOGLOBIN 14.6 g/dL (13.0-17.5); LYMPH # 1.9 x10^3/uL (1.0-4.8); LYMPH % 20 % (24-48); MEAN CORPUSCULAR HEMOGLOBIN 31 pg (25-35); MEAN CORPUSCULAR HGB CONC 34 g/dL (31-37); MEAN CORPUSCULAR VOLUME 91 fL (79-100); MONO # 0.8 x10^3/uL (0.0-1.1); MONO % 8 % (0-9); NEUT # 6.6 x10^3uL (1.8-7.7); NEUT % 69 % (31-73); PLATELET COUNT 285 x10^3/uL (140-400); RED BLOOD COUNT 4.78 x10^6/uL (4.30-5.70); RED CELL DISTRIBUTION WIDTH 13.8 % (11.5-14.5); WHITE BLOOD COUNT 9.6 x10^3/uL (4.0-11.0)
[2017-08-18 07:43] LABS: ALBUMIN 3.5 g/dL (3.4-5.0); ALBUMIN/GLOBULIN RATIO 1.2 (1.0-1.7); CALCIUM 8.6 mg/dL (8.5-10.1); CREATININE 1.1 mg/dL (0.7-1.3); GFR 66.6; MAGNESIUM 1.9 mg/dL (1.8-2.4); TOTAL BILIRUBIN 0.2 mg/dL (0.2-1.0); TOTAL PROTEIN 6.5 g/dL (6.4-8.2)
[2017-08-18] MEDS: PANTOPRAZOLE 40 MG TABLET. PO SCH (07:51)
--- NOTE | 2017-08-18 08:43 | PN ---
DATE: 08/17/2017 SUBJECTIVE: The patient was seen today, met with the staff, chart reviewed. The patient continues to show improvement, still withdrawn, has some psychomotor retardation and also blunting of affect. The patient also has some obsessive compulsive behaviors. The patient has not presented with any major behavior problems. OBSERVATION: Vital signs stable. Appetite improved. Sleep fair. MEDICATIONS: Include Zoloft 100 mg at night, trazodone 50 mg at night, mirtazapine 15 mg at night and Namenda 5 mg b.i.d. The patient is also on melatonin 6 mg at night, Aricept 10 mg at night, and olanzapine 2.5 mg q. 2 hours p.r.n. The patient denies of any side effects. The patient's lab reviewed. ASSESSMENT: 1. Major neurocognitive disorder, Alzheimer's, vascular with depression and delusions and behavioral disturbances. 2. Obsessive compulsive disorder. PLAN: To continue with the treatment. The patient is planned for discharge tomorrow. FABIOLA GIVENS MD DR: DIAN/alvin JOB#: [id number] / [id number]
[2017-08-18] MEDS: CHOLECALCIFEROL (VITAMIN D3) 50,000 UNIT CAPSULE PO SCH (09:15)
[2017-08-18] MEDS: OXYBUTYNIN CHLORIDE 5 MG TABLET PO SCH ×2 (09:15→20:14)
[2017-08-18] MEDS: DONEPEZIL HCL 10 MG TABLET PO SCH (09:15)
[2017-08-18] MEDS: MEMANTINE 5 MG TABLET. PO SCH ×2 (09:15→20:13)
[2017-08-18] MEDS: POLYVINYL ALCOHOL/POVIDONE/PF OPHTH SOLUTION DROPERETTE. OU PRN (15:02)
[2017-08-18 16:08] VITALS: BP 146/86
[2017-08-18] MEDS: ACETAMINOPHEN 500 MG TABLET PO SCH (20:13)
[2017-08-18] MEDS: MIRTAZAPINE 7.5 MG TABLET. PO SCH (20:13)
[2017-08-18] MEDS: diphenhydrAMINE HCL 25 MG CAPSULE PO SCH (20:13)
[2017-08-18] MEDS: traZODone 50 MG TABLET. PO SCH (20:14)
[2017-08-18] MEDS: ATORVASTATIN CALCIUM 20 MG TABLET PO SCH (20:14)
[2017-08-18] MEDS: MELATONIN 3 MG TABLET PO SCH (20:14)
[2017-08-19] MEDS ORDERED: ACET325T21 PO (02:33)
[2017-08-19] MEDS ORDERED: ACET500T68 PO (02:34)
[2017-08-19] MEDS ORDERED: CHOL500021 PO (02:34)
[2017-08-19] MEDS ORDERED: MAG355OR12 PO (02:35)
[2017-08-19] MEDS ORDERED: MAGN2400 PO (02:36)
[2017-08-19] MEDS ORDERED: MIRT15TA3 PO (02:38)
[2017-08-19] MEDS ORDERED: METH29OI TP (02:38)
[2017-08-19] MEDS ORDERED: OLAN5TAB5 PO (02:39)
[2017-08-19] MEDS ORDERED: POLY1DRO3 OU (02:40)
[2017-08-19] MEDS ORDERED: PANT40TA5 PO (02:40)
[2017-08-19] MEDS ORDERED: FLUV100T2 PO (02:41)
[2017-08-19] MEDS ORDERED: DIPH50CA PO (02:41)
[2017-08-19] MEDS ORDERED: TRAZ50TA15 PO (02:42)
--- NOTE | 2017-08-19 03:37 | DS ---
DATE OF DISCHARGE: 08/18/2017 FINAL DIAGNOSES: AXIS I: 1. Major neurocognitive disorder, Alzheimer's, vascular with depression, delusions, and behavioral disturbances. 2. Anxiety disorder, unspecified. 3. Impulse control disorder, unspecified. AXIS II: None. AXIS III: Hyperlipidemia, benign prostatic hypertrophy, vitamin D deficiency. REASON FOR ADMISSION: This 66-year-old male was brought into the Emergency Room by his for evaluation because of increased behavior problems, compulsive behaviors, and recently diagnosed with dementia. The patient was also seen by a neurologist, Dr. Diaz for the past several months. HISTORY OF PRESENT ILLNESS: The patient had been exhibiting short term memory deficits, increased confusion, disorientation for the past several months. He also had been anxious, being obsessive, compulsive, not sleeping well, decreased appetite, sometimes delusional. The patient also gets angry easily, wandering, undressing. HOSPITAL COURSE: The patient had a physical exam. Routine lab work including CBC, chem profile, urinalysis. Most of the labwork were within normal range except for elevated blood sugar and slightly elevated sodium and increased triglyceride 210, LDL 81. The patient's BUN and creatinine ratio 34, BUN 27. The patient was involved in the program including individual therapy, group therapy, activity therapy. The patient was encouraged to attend all the activities. The patient had difficulty following directions at times. The patient did not have any falls. The patient was continued on fluvoxamine 100 mg at night, trazodone 50 mg at night, mirtazapine 15 mg at night, Namenda 5 mg b.i.d., Lipitor 20 mg daily, melatonin 6 mg at night, Aricept 10 mg daily, Protonix 40 mg daily, Zyprexa 2.5 mg q.2 hours p.r.n. The patient made some progress. Also discussed the discharge plan and the treatment review today and the patient apparently has shown significant improvement. The patient did not present with any aggressive behaviors. The patient was able to make eye contact. Speech was clear, spontaneous, but decreased rate and rhythm and his affect and mood showed somewhat withdrawn, some constricted affect, occasional outbursts of anger, irritability, and mood swings. He is oriented to surroundings, but significant short term memory deficits. His judgment is impaired. Insight limited. AFTERCARE PLAN: The patient was discharged to return home with recommendation to be followed up as an outpatient by the psychiatrist or the primary care doctor and also explore adult day of care. The patient was medically stable, was not expressing any suicidal or homicidal thoughts or any psychotic symptoms. FABIOLA GIVENS MD DR: Eli JOB#: [id number] / [id number]
[2017-08-19 06:22] VITALS: BP 166/94
[2017-08-19] MEDS: MEMANTINE 5 MG TABLET. PO SCH (08:58)
[2017-08-19] MEDS: PANTOPRAZOLE 40 MG TABLET. PO SCH (08:59)
[2017-08-19] MEDS: OXYBUTYNIN CHLORIDE 5 MG TABLET PO SCH (08:59)
[2017-08-19] MEDS: DONEPEZIL HCL 10 MG TABLET PO SCH (08:59)
--- NOTE | 2017-08-22 23:31 | PN ---
DATE: 08/14/2017 This is a late entry for 08/14/2017 and covers elements not covered in my initial note of 08/14/2017. I met with the patient evening of 08/14/2017. Per nursing report, the patient remains somewhat obsessive, withdrawn, forgetful of short term events, cooperative with meds and assessment. REVIEW OF SYSTEMS: No CV, , pulmonary, eye, ENT system symptoms on review. Reliability poor. MENTAL STATUS EXAM: Oriented to himself. Insight, judgment, recent memory is impaired, remote is better. Language function intact, attention span short. Mood and affect, lability is improved. LABORATORY DATA: Reviewed. IMPRESSION: Major neurocognitive disorder, Alzheimer, vascular with depression, delusion, behavioral disturbance. Rest unchanged. PLAN: Continue current psychotropics. Adjust further as clinically indicated. I had dictated this note around my visit on 08/14/2017 from an external line, but note cannot be traced and this is a re-dictation. MARCIAL HINTON MD DR: PRO/alvin JOB#: [id number] / [id number]
== END 2017-08-19 12:00 | disposition home or self-care (01) | DRG 884 ==
LOC: ER 17:30 → GEROPSY 20:46
PROVIDERS: ADMIT Psychiatry & Neurology Psychiatry; ATTEND Psychiatry & Neurology Psychiatry
DX: F01.51 Vascular dementia, unspecified severity, with behavioral disturbance (principal); G30.0 Alzheimer's disease with early onset; F02.81 Dementia in other diseases classified elsewhere, unspecified severity, with behavioral disturbance; E55.9 Vitamin D deficiency, unspecified; E78.5 Hyperlipidemia, unspecified; F22 Delusional disorders; F32.9 Major depressive disorder, single episode, unspecified; F41.9 Anxiety disorder, unspecified; G47.00 Insomnia, unspecified; F42.9 Obsessive-compulsive disorder, unspecified; F63.9 Impulse disorder, unspecified; N40.0 Benign prostatic hyperplasia without lower urinary tract symptoms; Z79.899 Other long term (current) drug therapy; Z91.83 Wandering in diseases classified elsewhere
CPT/HCPCS: 36415; 71046; 80053; 80061; 80307; 81001; 82306; 82607; 83036; 83540; 83550; 83735; 84436; 84443; 84480; 85025; 86593; 93005; Q0163; 99285-25; G0479